=== PATIENT | female | born 1945 | race Caucasian/White ===

== ENCOUNTER → 2016-11-06 13:59 | Outpatient (CLI) | payer MEDICARE, OTHER | END | disposition home or self-care (01) | LOC: D.MRI 11-05 10:00 → D.RAD 11-05 13:00 → D.MRI 13:59 | DX: M25.519 Pain in unspecified shoulder (principal); R20.2 Paresthesia of skin ==

== ENCOUNTER → 2017-01-19 14:10 | Outpatient (CLI) | payer MEDICARE | END | disposition home or self-care (01) | LOC: D.LABREF 14:10 | DX: R59.0 Localized enlarged lymph nodes (principal) ==

== ENCOUNTER 2017-02-10 07:55 | Outpatient (CLI) | payer MEDICARE ==
[~2017-02-10] VITALS: Ht 165.1 cm; Wt 50.0 kg
[2017-02-10] MEDS ORDERED: ULTRAM50 MG PO (08:31)
[2017-02-10] MEDS ORDERED: PROCRIT/EP40000 UNIT SQ (08:31)
[2017-02-10] MEDS ORDERED: CYMBALTA30 MG PO (08:32)
[2017-02-10] MEDS ORDERED: LYRICA50 MG PO (08:32)
[2017-02-10 08:39] VITALS: Ht 165.1 cm; Wt 50.0 kg
--- NOTE | 2017-02-10 16:46 | NUR ---
1500 IV DC WITH CATHER TIP INTACT
== END 2017-02-10 16:00 | disposition home or self-care (01) ==
LOC: D.OPS 07:55
DX: D64.9 Anemia, unspecified (principal)

== ENCOUNTER 2017-02-24 09:25 | Outpatient (CLI) | payer MEDICARE ==
[~2017-02-24] VITALS: Ht 165.1 cm; Wt 48.2 kg
[~2017-02-24 09:25] MED LIST: CYMBALTA30 MG PO; LYRICA50 MG PO; PROCRIT/EP40000 UNIT SQ; ULTRAM50 MG PO
[2017-02-24 10:26] VITALS: BP 141/74; Ht 165.1 cm; Wt 48.2 kg
--- NOTE | 2017-02-24 12:02 | NUR ---
1150 HGB 9.5, HCT 28.2 1ST UNIT CHECKED AT BEDSIDE BY THIS NURSE AND LAWANDA HAYDEN RN. INITIATED BY ALARIS PUMP AT 50/CC/HR. PT WAS PREMEDICATED MAR INDICATED BY LAWANDA HAYDEN RN. 1200 REG DIET SERVED.
--- NOTE | 2017-02-24 12:05 | NUR ---
1205 DENIES PROBLEMS WITH BLOOD TRANSFUSION, RATE INCREASED TO 150/CC/HR.
--- NOTE | 2017-02-24 12:25 | NUR ---
1220 BLOOD CONTS. TO INFUSE WITHOUT PROBLEMS. PT. DOSING, AROUSES WITH CHECK. IV SITE PATENT.
--- NOTE | 2017-02-24 17:52 | NUR ---
1350 BLOOD COMPLETED LINE BEING FLUSHED WITH NS. DENIES PROBLEMS WITH TRANSFUSION. UP TO BR VOIDS LG AMT. 1450 NO PROBLEMS WITH TRANSFUSION. IV DC'D WITH CATH INTACT. RELEASED IN , [facility].
== END 2017-02-24 15:00 | disposition home or self-care (01) ==
LOC: D.OPS 09:25
DX: D64.9 Anemia, unspecified (principal)

== ENCOUNTER 2017-03-05 08:05 | Outpatient (CLI) | payer MEDICARE ==
[~2017-03-05] VITALS: Ht 165.1 cm; Wt 50.0 kg
[2017-03-05 08:38] VITALS: BP 123/51; Ht 165.1 cm; Wt 50.0 kg
--- NOTE | 2017-03-05 16:45 | NUR ---
1600--IV DC'D. QI CERON 1633--PT'S RIDE HERE. DISCHARGE INSTRUCTIONS GIVEN, PT VERBALIZES UNDERSTANDING. PT OFF UNIT VIA WC. QI CERON
== END 2017-03-05 16:45 | disposition home or self-care (01) ==
LOC: D.OPS 08:05
DX: D64.9 Anemia, unspecified (principal)

== ENCOUNTER → 2017-03-06 13:54 | Outpatient (CLI) | payer MEDICARE ==
[2017-03-05 08:38] VITALS: BMI 18.3
[2017-03-10 03:09] LABS: RAPID PLASMA REAGIN Non Reactive (Non Reactive)
[2017-03-10 15:24] LABS: EHRLICHIA CHAFF IGG Negative (Neg:<1:64); EHRLICHIA CHAFF IGM Negative (Neg:<1:20); HGE IGG TITER Negative (Neg:<1:64); HGE IGM TITER Negative (Neg:<1:20)
== END | disposition home or self-care (01) ==
LOC: D.LABREF 13:54
PROVIDERS: Student in an Organized Health Care Education/Training Program
DX: R63.4 Abnormal weight loss (principal); R59.1 Generalized enlarged lymph nodes; R61 Generalized hyperhidrosis

== ENCOUNTER 2017-04-01 09:53 | Inpatient (IN) | payer MEDICARE ==
[2017-04-01] VITALS (15 sets, daily range): BP systolic 127–196; BP diastolic 63–95; BMI 19.1
[~2017-04-01] VITALS: Ht 165.1 cm; Wt 64.1 kg
[~2017-04-01 09:53] MED LIST changes: +PROTONIX40 MG PO
--- NOTE | 2017-04-01 12:30 | NUR ---
NO PREP NO COUNT R/T PROCEDURE
--- NOTE | 2017-04-01 13:08 | NUR ---
BRITTNEYIE PAD TO RIGHT THIGH. LOT #[id number] [id number].
--- NOTE | 2017-04-01 13:16 | NUR ---
PATIENT REMAINED ON STRETCHER FOR PROCEDURE.
--- NOTE | 2017-04-01 15:00 | NUR ---
RECEIVED FROM RECOVERY ROOM VIA BED. CARE PLAN REVIEWED. SISTER IN ROOM. WILL CONTINUE WITH PLAN OF CARE.
[2017-04-01 15:43] LABS: BASOPHILS 0.5 % (0-2); EOSINOPHILS 0.7 % (0-7); HEMATOCRIT 22.1 % (36.0-48.0); IMMATURE GRANULOCYTES 0.8 % (0-5); LYMPHOCYTES 15.9 % (15-50); MCH 28.8 pg (26.0-34.0); MCHC 30.3 g/dL (31.0-37.0); MCV 94.8 fL (80.0-100.0); MEAN PLATELET VOLUME 11.4 fL (7.4-10.4); MONOCYTES 9.3 % (2-11); NEUTROPHILS 72.8 % (40-80); PLATELET COUNT 74 10x3/uL (130-400); RBC 2.33 10x6/uL (4.00-5.40); RDW 21.1 % (11.5-14.5); WBC 5.9 10x3/uL (4.8-10.8)
[2017-04-01 15:47] LABS: HEMOGLOBIN 6.7 g/dL (12-16)
[2017-04-01 16:04] LABS: ALBUMIN 2.1 g/dL (3.4-5.0); ANION GAP 13.6 mmol/L (8-16); BILIRUBIN - TOTAL 0.7 mg/dL (0.2-1.3); CALCIUM 7.8 mg/dL (8.5-10.1); CARBON DIOXIDE 25.2 mmol/L (21.0-32.0); CREATININE - SERUM 2.3 mg/dL (0.6-1.3); POTASSIUM - SERUM 3.8 mmol/L (3.5-5.1); PROTEIN - SERUM 4.8 g/dL (6.4-8.2)
--- NOTE | 2017-04-01 16:08 | NUR ---
ADRIAN CHRISTIANSEN. REFUSED CYMBALTA AT THIS TIME. CALL LIGHT IN REACH.
[2017-04-01 17:05] LABS: PLATELET ESTIMATE DECREASED
[2017-04-01 17:38] LABS: ALBUMIN 1.9 g/dL (3.4-5.0); ANION GAP 10.8 mmol/L (8-16); CARBON DIOXIDE 25.1 mmol/L (21.0-32.0); CREATININE - SERUM 2.1 mg/dL (0.6-1.3); MAGNESIUM - SERUM 2.1 mg/dL (1.8-2.4); PHOSPHOROUS 5.5 mg/dL (2.5-4.9); POTASSIUM - SERUM 3.9 mmol/L (3.5-5.1); PRE-ALBUMIN 10.3 mg/dL (18.0-35.7)
--- NOTE | 2017-04-01 18:30 | NUR ---
CONSENT FORMS SIGNED AND WITNESSED. NO CHANGES IN INITIAL ASSESSMENT. CALL LIGHT IN REACH. WILL CONTINUE WITH PLAN OF CARE.
--- NOTE | 2017-04-01 19:00 | NUR ---
PRBC INITIATED @ 100 CC/HR. VSS. CALL LIGHT IN REACH.
--- NOTE | 2017-04-01 20:00 | NUR ---
ASSESSMENT PER FLOWSHEET. IV PATENT LEFT WRIST WITH FIRST UNIT PRBC'S INFUSIG AT 100CC'S/HR. MONITORING VS DURING TRANSFUSION. SR YP X2 CALL LIGHT WITHIN REACH. PT VERY AK[place]K IN RT EAR.
--- NOTE | 2017-04-01 21:45 | NUR ---
FIRST UNIT BLOOD COMPLETED WITHOUT ANY REACTION. NS RUNNING AT KVO TO FLUSH TUBING.
--- NOTE | 2017-04-01 22:45 | NUR ---
SECOND UNIT OF PRBC'S HUNG PER HOSPITAL PROTOCAL. CONTINUE TO MONITOR VS DURING PROCEDURE.
--- NOTE | 2017-04-01 23:30 | NUR ---
NO REACTION SEEN TRANSFUSION RUNNING FINE.
[2017-04-02] VITALS (15 sets, daily range): BP systolic 164–197; BP diastolic 67–96; Ht 165.1 cm; Wt 64.1 kg
--- NOTE | 2017-04-02 01:30 | NUR ---
BLOOD TRANSFUSION COMPLETED NOT REACTION NOTED. NS RUNNING KVO TO FLUSHED TUBING.
--- NOTE | 2017-04-02 02:00 | NUR ---
VOIDED ON BEDPAN.
--- NOTE | 2017-04-02 04:15 | NUR ---
EYES CLOSED RESPIRATIONS WITH EASE AND UNLABORED IV SALINE LOCKED. NO ORDERS FOUND FOR IV FLUIDS.
--- NOTE | 2017-04-02 07:46 | NUR ---
AWAKE AND ALERT. ORIENTED X3. C/O SOME NAUSEA THIS AM. REQUESTED AND GIVNE 4MG ZOFRAN SLOW IVP FOR SAME. WILL MONITOR. ASSISTED WITH BED WAGONER PER STAFF. VOIDED 200CC CLEAR YELLOW URINE. SKIN CARE PER STAFF. LUNGS ARE CLEAR BILATERALLY, NO COUGH NOTED. SKIN IS INTACT WITHOUT REDNESS. IV TO LFET WRIST IS PATENT WTIHOUT REDNESS AT INSERTION SITE. SCD'S OFF AT THIS TIME. DENIES NEEDS. LAB HERE TO ATTEMPT BLOOD DRAW.
--- NOTE | 2017-04-02 08:30 | NUR ---
OFF UNIT VIA BED FOR PROCEDURE. LAB AND NURSING UNABLE TO DRAW BLOOD THIS AM.
--- NOTE | 2017-04-02 10:00 | NUR ---
RETURNED FROM PROCEDURE. SISTER AT [facility]. S. BP UP. WILL MONITOR.
[2017-04-02 13:05] LABS: BASOPHILS 0.1 % (0-2); EOSINOPHILS 0.7 % (0-7); IMMATURE GRANULOCYTES 0.8 % (0-5); LYMPHOCYTES 9.8 % (15-50); MCH 29.9 pg (26.0-34.0); MCHC 33.8 g/dL (31.0-37.0); NEUTROPHILS 81.6 % (40-80); PLATELET COUNT 61 10x3/uL (130-400); RDW 19.4 % (11.5-14.5)
[2017-04-02 13:12] LABS: HEMATOCRIT 26.9 % (36.0-48.0); HEMOGLOBIN 9.1 g/dL (12-16); MCV 88.5 fL (80.0-100.0); RBC 3.04 10x6/uL (4.00-5.40); WBC 9.1 10x3/uL (4.8-10.8)
[2017-04-02 19:16] LABS: ANION GAP 15.4 mmol/L (8-16); BILIRUBIN - TOTAL 0.96 mg/dL (0.2-1.3); CALCIUM 8.2 mg/dL (8.5-10.1); CARBON DIOXIDE 23.4 mmol/L (21.0-32.0); CREATININE - SERUM 2.6 mg/dL (0.6-1.3); POTASSIUM - SERUM 3.8 mmol/L (3.5-5.1); PROTEIN - SERUM 4.9 g/dL (6.4-8.2)
--- NOTE | 2017-04-02 19:35 | NUR ---
CLEAR LIQUID SUPPER TRAY SERVED IN ROOM. ATE ONLY A FEW SIPS OF ENSURE. CALLED RADIOLOGY RE PICC PLACEMENT. GIVEN VERBAL OK FOR USE OF SAME.
[2017-04-03] VITALS: BP 167/94
[2017-04-03 04:00] VITALS: BP 177/91
[2017-04-03 05:17] LABS: BASOPHILS 0.2 % (0-2); EOSINOPHILS 0.6 % (0-7); HEMATOCRIT 25.9 % (36.0-48.0); HEMOGLOBIN 8.7 g/dL (12-16); IMMATURE GRANULOCYTES 0.5 % (0-5); LYMPHOCYTES 9.4 % (15-50); MCHC 33.6 g/dL (31.0-37.0); MCV 89.3 fL (80.0-100.0); MONOCYTES 9.1 % (2-11); NEUTROPHILS 80.2 % (40-80); PLATELET COUNT 57 10x3/uL (130-400); RDW 20.1 % (11.5-14.5); WBC 11.1 10x3/uL (4.8-10.8)
[2017-04-03 05:39] LABS: ANION GAP 16.6 mmol/L (8-16); BILIRUBIN - TOTAL 0.95 mg/dL (0.2-1.3); CALCIUM 8.1 mg/dL (8.5-10.1); CARBON DIOXIDE 22.1 mmol/L (21.0-32.0); MAGNESIUM - SERUM 1.9 mg/dL (1.8-2.4); PHOSPHOROUS 6.1 mg/dL (2.5-4.9); POTASSIUM - SERUM 3.7 mmol/L (3.5-5.1)
--- NOTE | 2017-04-03 07:30 | NUR ---
AWAKE AND ALERT. ORIENTED X3. NO C/O AT THIS TIME. DENIES NEEDS. LUNGS ARE CLEAR BILATERALLY, NO COUGH NOTED. SKIN IS INTACT WITHOUT REDNESS. PICC TO LEFT UPPER ARM IS PATENT WITHOUT REDNESS AT ISNERTION SITE. SL TO LEFT WRIST PATENT WITHOUT REDNESS AT INSERTION SITE. PEG TUBE PATENT. ABDOMINAL BINDER IN PLACE WELL.
[2017-04-03 08:09] VITALS: BP 171/99
--- NOTE | 2017-04-03 08:58 | NUR ---
C/O PAIN TO RIGHT UPPER CHEST. REQUESTED AND GIVEN 50MG ULTRAM PO FOR PAIN LEVEL 6. WILL MONITOR.
--- NOTE | 2017-04-03 09:02 | NUR ---
Nutrition Consult: TF consult received. PEG placed 04/02/17. Pt is on a clear liquid diet. Will put order in to start TF when ok with MD. Start TF of Vital 1.0 @ 15 ml/hr. Increase TF 10 ml every 8 hours as tolerated to goal rate of 65 ml/hr. Water flushes 50 ml every 4 hours. Thank you for the consult. RD following.
--- NOTE | 2017-04-03 11:23 | NUR ---
REPORTED GOOD RELIEF WITH USE OF ULTRAM. SISTER AT BEDSIDE.
[2017-04-03 12:36] VITALS: BP 158/90
--- NOTE | 2017-04-03 12:55 | NUR ---
STARTED TUBE FEEDING PER ORDER.
--- NOTE | 2017-04-03 14:00 | NUR ---
REPOSITIONED IN BED FOR COMFORT. DENIES NEEDS. FAMILY AT BEDSIDE.
[2017-04-03 15:50] VITALS: BP 163/94
[2017-04-03 19:13] LABS: CREATININE - URINE 43.3 mg/dL (30-125); PRO/CRE RATIO URINE 3.9 mg/g; PROTEIN - URINE 166.9 mg/dL (0.0-11.9)
[2017-04-03 19:16] LABS: APPEARANCE HAZY (CLEAR); BACTERIA MODERATE /hpf (NONE SEEN); BILIRUBIN NEGATIVE (NEGATIVE); COLOR YELLOW (YELLOW); GLUCOSE NEGATIVE (NEGATIVE); KETONE NEGATIVE (NEGATIVE); MUCUS <1+ /lpf (NONE SEEN); NITRITE NEGATIVE (NEGATIVE); PROTEIN 2+ mg/dL (NEGATIVE); SPECIFIC GRAVITY 1.015 (1.005-1.020); UROBILINOGEN NORMAL (NORMAL)
[2017-04-03 19:17] LABS: LEUKOCYTE ESTERASE TRACE (NEGATIVE)
[2017-04-03 20:00] VITALS: BP 168/96
--- NOTE | 2017-04-03 20:00 | NUR ---
ASSESSMENT PER FLOW SHEET.PT WITHOUT DISTRESS.DENIES NEEDS.CALL LIGHT IN REACH
--- NOTE | 2017-04-03 23:54 | NUR ---
RESTING WITHOUT DISTRESS.DOOR OPEN TO MONITOR
[2017-04-04] VITALS (19 sets, daily range): BP systolic 123–155; BP diastolic 62–96
--- NOTE | 2017-04-04 02:53 | NUR ---
RESTING QUIETLY WITHOUT DISTRESS.DOOR OPEN TO MONITOR
[2017-04-04 04:55] LABS: BASOPHILS 0.2 % (0-2); EOSINOPHILS 1.4 % (0-7); HEMATOCRIT 24.5 % (36.0-48.0); HEMOGLOBIN 8.2 g/dL (12-16); LYMPHOCYTES 10.3 % (15-50); MCH 30.7 pg (26.0-34.0); MCHC 33.5 g/dL (31.0-37.0); MONOCYTES 11.4 % (2-11); NEUTROPHILS 75.7 % (40-80); PLATELET COUNT 57 10x3/uL (130-400); RBC 2.67 10x6/uL (4.00-5.40); RDW 21.5 % (11.5-14.5); WBC 9.9 10x3/uL (4.8-10.8)
[2017-04-04 05:01] LABS: MCV 91.8 fL (80.0-100.0)
--- NOTE | 2017-04-04 05:09 | NUR ---
REMAINS WITHOUT CHANGE FROM INITIAL SHIFT ASSESSMENT.CONT PLAN OF CARE
[2017-04-04 05:13] LABS: ALBUMIN 1.9 g/dL (3.4-5.0); ANION GAP 13.3 mmol/L (8-16); BILIRUBIN - TOTAL 0.65 mg/dL (0.2-1.3); CALCIUM 7.7 mg/dL (8.5-10.1); CARBON DIOXIDE 23.5 mmol/L (21.0-32.0); CREATININE - SERUM 3.5 mg/dL (0.6-1.3); MAGNESIUM - SERUM 1.9 mg/dL (1.8-2.4); PHOSPHOROUS 6.3 mg/dL (2.5-4.9); POTASSIUM - SERUM 3.8 mmol/L (3.5-5.1); PROTEIN - SERUM 4.8 g/dL (6.4-8.2)
--- NOTE | 2017-04-04 12:50 | NUR ---
WILMER, KETTLE COOK CALLED AND SAID THE PATIENT IS 89 S[address] TACH. CHECKED PATIENT, SHE IS LAYING IN BED, CALM AND STILL, NOT MOVING AROUND. PATIENT DOES NOT APPEAR TO BE IN DISTRESS. RESPIRATIONS ARE EVEN AND UNLABORED. PAGED . CAME IN TO SEE PATIENT. TOLD ABOUT PATIENT'S HEART RATE GOING UP AND DOWN. HE IS ASSESSING PATIENT. CALLED, NOTIFIED ALSO.
--- NOTE | 2017-04-04 13:45 | NUR ---
CHECKED PATIENT'S RESIDUAL, 150ML OF BROWN FLUID WITH BRIGHT RED BLOOD, BLOOD CLOTS AND DARK BLOOD. CLAMPLED NGT. PAGED .
--- NOTE | 2017-04-04 13:51 | NUR ---
PEG TUBE TO GRAVITY.
--- NOTE | 2017-04-04 14:16 | NUR ---
NO ACTIVE ORDER FOR . PAGED .
[2017-04-04 14:43] LABS: HEMATOCRIT 23.5 % (36.0-48.0); HEMOGLOBIN 7.7 g/dL (12-16)
[2017-04-04 15:01] LABS: COMPLEMENT C4 15.8 mg/dL (17.4-52.2)
[2017-04-04 15:59] LABS: ERYTHROCYTE SEDIMENTATION RATE 14 mm/hr (0-30)
--- NOTE | 2017-04-04 18:08 | NUR ---
STARTED FIRST UNIT OF PRBC. WILL REMAIN WITH PATIENT FOR THE FIRST 15 MINUTES OF THE TRANSFUSION. SISTER AT THE BEDSIDE.
--- NOTE | 2017-04-04 20:00 | NUR ---
ASSESSMENT PER FLOW SHEET. PT WITHOUT DISTRESS.DENIES NEEDS.CALL LIGHT IN REACH
--- NOTE | 2017-04-04 21:15 | NUR ---
UNIT 1 OF 2 PRBC'S COMPLETE.PT WITHOUT REACTIONS.
--- NOTE | 2017-04-04 22:30 | NUR ---
UNIT 2 OF 2 PRBC'S INITIATED.PT WITHOUT REACTIONS
[2017-04-05] VITALS (24 sets, daily range): BP systolic 102–161; BP diastolic 58–98
--- NOTE | 2017-04-05 00:30 | NUR ---
UNIT 2 OF 2 PRBC'S COMPLETE.PT REMAINS WITHOUT REACTIONS.
[2017-04-05 02:39] LABS: HEMATOCRIT 31.3 % (36.0-48.0); HEMOGLOBIN 10.6 g/dL (12-16)
--- NOTE | 2017-04-05 02:55 | NUR ---
PT HAS DECREASED LOC AND LARGE AMOUNTS OF TARRY BLACK STOOL. RAPID RESPONCE CALLED ,SEE RAPID SHEET.
[2017-04-05 03:13] LABS: BASOPHILS 0.2 % (0-2); EOSINOPHILS 0.7 % (0-7); HEMATOCRIT 34.9 % (36.0-48.0); HEMOGLOBIN 11.4 g/dL (12-16); LYMPHOCYTES 26.9 % (15-50); MCH 30.6 pg (26.0-34.0); MCHC 32.7 g/dL (31.0-37.0); MCV 93.6 fL (80.0-100.0); MONOCYTES 8.5 % (2-11); NEUTROPHILS 62.7 % (40-80); PLATELET COUNT 75 10x3/uL (130-400); RBC 3.73 10x6/uL (4.00-5.40); RDW 18.9 % (11.5-14.5); WBC 16.3 10x3/uL (4.8-10.8)
[2017-04-05 03:32] LABS: ALBUMIN 1.9 g/dL (3.4-5.0); ANION GAP 16.9 mmol/L (8-16); BILIRUBIN - TOTAL 0.96 mg/dL (0.2-1.3); CARBON DIOXIDE 21.2 mmol/L (21.0-32.0); CREATININE - SERUM 3.8 mg/dL (0.6-1.3); MAGNESIUM - SERUM 2.2 mg/dL (1.8-2.4); PHOSPHOROUS 7.6 mg/dL (2.5-4.9); POTASSIUM - SERUM 5.1 mmol/L (3.5-5.1); PROTEIN - SERUM 5.2 g/dL (6.4-8.2)
[2017-04-05 03:35] LABS: APTT 38.1 SECONDS (22.8-39.4); INR 1.38 (0.85-1.17); PROTIME 16.9 SECONDS (11.6-15.0)
--- NOTE | 2017-04-05 03:40 | NUR ---
CALLED DR. MORSE AND MADE AWARE OF CONSULT AND SITUATION. ORDERS TO INTUBATE AND VENT SETTINGS GIVEN. DIPRIVAN ORDERS FOR TITRATION FOR SEDATION PURPOSES. DR. COX ER DOC AT BEDSIDE APPROX. 0345 AND SINCE PATIENT IS TALKING AND ORIENTED AT THIS TIME AND OXYGENATING W/ O2 SAT OF 96%, WANTS TO DO BIPAP AT THIS TIME. PLACED ON 15/02; FI02 @ 100% RATE OF 12. IV SODIUM BICARB X2 ORDERED.
--- NOTE | 2017-04-05 03:52 | NUR ---
PT TO ICU VIA BED.
--- NOTE | 2017-04-05 03:52 | NUR ---
CALL TO FAMILY,[facility] CONTACT LISTED [phone].MESSAGE LEFT FOR THEM TO CALL MED SURG UNIT
--- NOTE | 2017-04-05 07:30 | NUR ---
REPORT RECEIVED. ASSESSMENT COMPLETE. SEE FLOW SHEET FOR FINDINGS. PT ON BIPAP AT 50% AT THIS TIME. HAS PEG TO AT LEFT ABDOMEN TO GRAVITY. HAS SHARPE CATHETER. PICC LINE IN RIGHT ARM. NS AND PROTONIX RUNNING. SCD'S.
--- NOTE | 2017-04-05 08:23 | NUR ---
PT PLACED ON 4L NC TO GO TO CT. SATS 98%. NO DISTRESS.
--- NOTE | 2017-04-05 10:26 | NUR ---
DR HOLLOWAY CALLED TO CHECK ON PATIENT. WANTS ORDER FOR FLAGYL AND LEVAQUIN. SPOKE TO HER ABOUT H&H LEVELS. ASKED IF SHE WANTED A UNIT OF BLOOD ADMINISTERED. SHE ASKED TO HOLD OFF FOR RIGHT NOW, BUT CONTINUE TO MONITOR FOR BLEEDING.
--- NOTE | 2017-04-05 10:50 | NUR ---
URINE COLLECTED FOR SAMPLE. VERY LITTLE URINE OUTPUT EVEN AFTER 80MG LASIX GIVEN. PT STILL ON BIPAP AT THIS TIME. DESATS VERY QUICKLY WHEN MASK TAKEN OFF.
[2017-04-05 11:03] LABS: APPEARANCE CLOUDY (CLEAR); BILIRUBIN NEGATIVE (NEGATIVE); COLOR YELLOW (YELLOW); GLUCOSE NEGATIVE (NEGATIVE); KETONE NEGATIVE (NEGATIVE); LEUKOCYTE ESTERASE 1+ (NEGATIVE); NITRITE NEGATIVE (NEGATIVE); PROTEIN 2+ mg/dL (NEGATIVE); UROBILINOGEN NORMAL (NORMAL)
[2017-04-05 11:05] LABS: EPITHELIAL CELLS 0-5 /hpf (0-5); RED CELLS - URINE 0-5 /hpf (0-5); WHITE CELLS - URINE 0-5 /hpf (0-5)
[2017-04-05 11:06] LABS: AMORPHOUS SEDIMENT <1+ /lpf (NONE SEEN); BACTERIA FEW /hpf (NONE SEEN)
--- NOTE | 2017-04-05 12:15 | NUR ---
SISTER AT BEDSIDE FOR VISITATION. PT KEEPS PULLING AT MASK. O2 SATS 95% AT THIS TIME.
--- NOTE | 2017-04-05 13:30 | NUR ---
PT BECOMING MORE ANXIOUS. HR ELEVATED INTO 130'S. SPOKE TO DR LIMA ABOUT ELEVATED HR. SHE CALLED [facility]AL[facility] IN PHARMACY TO DISCUSS SULPHA ALLERGY AND MORPHINE. NO CONNECTION. IT HAD BEEN DISCUSSED PREVIOUSLY WITH DR BROOKS, AND HE INITIALLY WANTED MORPHINE GIVEN, BUT THOUGHT WAS INCOMPATIBLE. SINCE IS OK, DR LIMA ORDERING A LOW DOSE FOR ADMINISTRATION.
[2017-04-05 13:56] LABS: HEMATOCRIT 30.9 % (36.0-48.0); HEMOGLOBIN 10.3 g/dL (12-16)
--- NOTE | 2017-04-05 14:06 | NUR ---
PT GIVEN PRN MORPHINE. IS CURRENTLY RESTING. HR STILL LOW 130'S. CURRENTLY ON DOBUTREX DRIP AT 5 MCG. STILL HAS HAD VERY LITTLE URINE OUTPUT.
--- NOTE | 2017-04-05 15:20 | NUR ---
SISTER AT BEDSIDE FOR 3PM VISITATION. HR STILL ELEVATED. SISTER BROUGHT SOFT SOCKS FOR HANDS. DOES NOT HAVE ANY GLOVES.
--- NOTE | 2017-04-05 15:29 | NUR ---
OBTAINTED CONSENT FROM SISTER, [facility], FOR COMPUTED TOMOGRAPHY GUIDED RENAL BIOPSY ON 04/06/17.
--- NOTE | 2017-04-05 16:04 | NUR ---
PT HR HAS STAYED ABOVE 135. DR BROOKS NOTIFIED. ASKED FOR DOBUTREX DRIP TO BE STOPPED. ASKED FOR AN ECHO TO BE ORDERED WELL.
--- NOTE | 2017-04-05 17:53 | NUR ---
PT RESTING QUIETLY AT THIS TIME. NO DISTRESS NOTED. BIPAP IN USE AT 50%.
[2017-04-05 19:11] LABS: HEMATOCRIT 29.3 % (36.0-48.0); HEMOGLOBIN 9.9 g/dL (12-16)
--- NOTE | 2017-04-05 21:00 | NUR ---
SISTER AT BS, UPDATE GIVEN AND QUESTIONS ANSWERED. PT RESTING QUIETLY, NO SIGN OF DISTRESS.
--- NOTE | 2017-04-05 23:13 | NUR ---
REASSESSMENT PER FLOWSHEET. TOLERATED 30MIN BREAK FROM BIPAP TO 4L NC. ASKING AND ANSWERING QUESTIONS APPROP. REORIENTED BY NURSE.
[2017-04-06] VITALS (30 sets, daily range): BP systolic 104–160; BP diastolic 52–98
--- NOTE | 2017-04-06 01:00 | NUR ---
RESTING WITH EYES CLOSED, VSS.
--- NOTE | 2017-04-06 03:29 | NUR ---
REASSESSMENT PER FLOWSHEET. ON 4L NC FOR BREAK AND ORAL CARE. NO ACUTE CHANGES. PT REMAINS ORIENTED AT THIS TIME. VSS.
[2017-04-06 05:01] LABS: BASOPHILS 0 % (0-2); EOSINOPHILS 0.4 % (0-7); HEMATOCRIT 27.9 % (36.0-48.0); HEMOGLOBIN 9.4 g/dL (12-16); IMMATURE GRANULOCYTES 0.8 % (0-5); LYMPHOCYTES 6.9 % (15-50); MCH 31.3 pg (26.0-34.0); MCHC 33.7 g/dL (31.0-37.0); MONOCYTES 9.1 % (2-11); NEUTROPHILS 82.8 % (40-80); PLATELET COUNT 60 10x3/uL (130-400); RDW 19.9 % (11.5-14.5)
[2017-04-06 05:04] LABS: WBC 10.1 10x3/uL (4.8-10.8)
[2017-04-06 05:10] LABS: APTT 38.5 SECONDS (22.8-39.4); INR 1.45 (0.85-1.17); PROTIME 17.5 SECONDS (11.6-15.0)
[2017-04-06 05:27] LABS: ALBUMIN 1.7 g/dL (3.4-5.0); ANION GAP 17.1 mmol/L (8-16); BILIRUBIN - TOTAL 0.81 mg/dL (0.2-1.3); CALCIUM 7.4 mg/dL (8.5-10.1); CARBON DIOXIDE 22.1 mmol/L (21.0-32.0); CREATININE - SERUM 4.3 mg/dL (0.6-1.3); POTASSIUM - SERUM 4.2 mmol/L (3.5-5.1); PRE-ALBUMIN 9.5 mg/dL (18.0-35.7); PROTEIN - SERUM 4.8 g/dL (6.4-8.2)
--- NOTE | 2017-04-06 06:09 | NUR ---
DR. CUNHA NOTIFIED OF UOP AND AM LABS. NO NEW ORDERS.
--- NOTE | 2017-04-06 06:20 | NUR ---
SMALL SMEAR OF BROWN STOOL, NOT ENOUGH FOR LAB SAMPLE, MARK-CARE DONE AND PAD CHANGED.
--- NOTE | 2017-04-06 06:40 | NUR ---
UNIT #1 PRBCS INITIATED PER MD ORDER, PER HOSPITAL POLICY.
--- NOTE | 2017-04-06 07:30 | NUR ---
SHIFT ASSESSMENT COMPLETE. SEE FLOWSHEET FOR FINDINGS. PT ON BIPAP AT THIS TIME, BUT IS ALERT AND ORIENTED. ANSWERS APROPRIATELY.
--- NOTE | 2017-04-06 09:12 | NUR ---
PRBC COMPLETE. VSS. PT SISTER AT BEDSIDE. PT AWAKE AND ASKS TO HAVE A BREAK FROM BIPAP. PLACED ON 4L NC. TOLERATING WELL. SATS ABOVE 97%. WILL CONTINUE TO MONITOR SATS FOR DESATURATION AND NEED FOR BIPAP
--- NOTE | 2017-04-06 09:30 | NUR ---
PLATELETS STARTED. DESMOPRESSIN STARTED IN PREPARATION FOR RENAL BIOPSY.
--- NOTE | 2017-04-06 10:08 | NUR ---
Nutrition follow-up: Pt is now NPO due to GI bleeding PEG to gravity Labs reviewed Pt now assessed with severe malnutrition of acute illness R/T watermelon stomach AEB < 50% intake of estimated energy needs for > 5 days; noted subcutaneous fat, muscle loss to extremities; noted moderate temporal wasting; noted reduced surveillance sensor officer strength. Pt will need nutrition support started within [address]N following.
--- NOTE | 2017-04-06 10:17 | NUR ---
PT ASKED TO BE PLACED BACK ON BIPAP. O2 SATS 96%, BUT SHE FELT LIKE SHE WASN'T GETTING "ENOUGH AIR" ON NC 4L.
--- NOTE | 2017-04-06 11:24 | NUR ---
PT OFF UNIT FOR RENAL BIOPSY
--- NOTE | 2017-04-06 11:56 | NUR ---
PT RETURNED TO ROOM FROM CT. WAS UNABLE TO DO BIOPSY. PT STARTED HAVING DIFFICULTY BREATHING UPON TRANSFER TO TABLE. WAS RETURNED TO ICU AND PLACED BACK ON BIPAP. DR DIAMOND NOTIFIED. HE ASKED TO HOLD OFF ON BIOPSY AND TRY AGAIN LATER THIS AFTERNOON. WANTS HER TO BE ON OXYMIZER AND SEE HOW SHE TOLERATES THAT, IF UNABLE, BIOPSY WILL HAVE TO WAIT.
--- NOTE | 2017-04-06 13:37 | NUR ---
* Is the patient Alert and Oriented? Yes 0 * How many steps to enter\exit or inside your home? 0 0 * PCP Dr. Campbell 0 * Pharmacy [facility] #2 0 * Preadmission Environment Home with Family 0 * ADLs Partial Dependent 0 * Partial ADLs (Assistance needed) Ambulation Bathing Dressing Medication Management Toileting Transfers 0 * Equipment Cane Rolling Walker Shower Chair Wheelchair 0 * List name and contact numbers for known caregivers / representatives who currently or will assist patient after discharge: Sister - Sherice Sullivan [phone] 0 * Additional services required to return to the preadmission environment? Yes 0 * Can the patient safely return to the preadmission environment? Yes 0 * Has this patient been hospitalized within the prior 30 days at any hospital? No 04/06/2017 13:40 DCP: Discharge Planning Patient Name: YONIS ESCOBAR Admission Status: Elective Accout number: [id number] Admission Date: 04-02-2017 : 1945 Admission Diagnosis:ACUTE POSTHEMORRHAGIC ANEMIA Attending: BRICE Current LOS: 4 Planned Disposition: Home with Home Health Primary Insurance: [facility] Discharge Planning Comments: CM met with patient to assess dc plans/needs. Also spoke with sister, Sherice, via telephone. Patient states she was living at home with her , but he about 2 weeks ago after a major CVA. She states her health has rapidly declined over the last couple of months, unable to care for herself. She states her sister has been staying with her & providing care & transportation. She reports she was using a walker when she would go to the bathroom, but was otherwise pretty much bed confined. Above confirmed with sister, Sherice Sullivan. Sherice reports she is POA. Discussed rehab options with both patient & sister. They are agreeable. Their first choice is [facility]. Answered all questions. CM will follow. Sap Payroll Consultant: Nicolasa Leahy
[2017-04-06 13:56] LABS: HEMATOCRIT 32.2 % (36.0-48.0); HEMOGLOBIN 10.8 g/dL (12-16)
--- NOTE | 2017-04-06 14:08 | NUR ---
CALLED RENAL OFFICE. DR WIGGINS CREDIT OPERATIONS PROCESSOR. RICHY FROM [facility] WANTING TO SPEAK WITH DR WIGGINS ABOUT BIOPSY. PT HAS BEEN PLACED BACK ON BIPAP AFTER TRIALING OXYMIZER. PT DID NOT TOLERATE AND DESAT DOWN TO 92. TOOK 45 MINUTES AFTER BEING PLACED BACK ON BIPAP TO GETS SATS ABOVE 95% SHE IS RESTING AT THIS TIME. STILL AWAITING RETURN CALL FROM [facility] TO NOTIFY HIM OF BIOPSY STATUS.
--- NOTE | 2017-04-06 14:20 | NUR ---
RICHY FROM IR CALLED AND SPOKE WITH DR DIAMOND. DOES NOT ADVISE TO PERFORM BIOPSY TODAY. ASKS TO HOLD OFF UNTIL THURSDAY AND GIVE PT TIME TO IMPROVE.
--- NOTE | 2017-04-06 15:45 | NUR ---
MAINTENANCE FLUID DROPPED TO KVO REQUESTED BY DR WIGGINS. PT REMIANS ON BIPAP AT 50%. SATS NOW AT 96%.
--- NOTE | 2017-04-06 18:28 | NUR ---
CONTACTED DR. GARRETT, TO INFORM OF CONSULT RELATED TO PTS UNCONTROLLED A-FIB, ASKED TO BE STARTED ON CARDIZEM.
--- NOTE | 2017-04-06 18:32 | NUR ---
DR SEGOVIA BY TO SEE PATIENT.
--- NOTE | 2017-04-06 18:52 | NUR ---
CARDIZEM DRIP STARTED. PT HR UNDER 100 AT THIS TIME. RESTING QUIETLY. BP HAS COME DOWN SOME WELL. PT STATES SHE FEELS LESS ANXIOUS ALSO
--- NOTE | 2017-04-06 19:25 | NUR ---
REC'D TO CARE, LINEN ROOM SUPERVISOR PER FLOWSHEET. PT ON BIPAP, AWAKE, DENIES PAIN OR SOB. VSS. CM - NSR. IVF INFUSING TO L PICC - SEE FLOWSHEET. ALARMS ON AND C.L IN REACH.
[2017-04-06 20:21] LABS: HEMOGLOBIN 10.7 g/dL (12-16)
--- NOTE | 2017-04-06 20:26 | NUR ---
DR. GARRETT IN TO SEE PT, NEW ORDER TO DECREASE RATE TO 5MG/HR FOR HR < 65, AND OFF IF REMAINS < 65.
--- NOTE | 2017-04-06 21:25 | NUR ---
SISTER AT BS. PT OFF BIPAP TO VISIT AND FOR ORAL CARE, UPDATE GIVEN AND QUESTIONS ANSWERED.
--- NOTE | 2017-04-06 23:34 | NUR ---
REASSESSMENT PER FLOWSHEET, NO ACUTE CHANGES. REPOSITIONED TO R SIDE WITH PILLOWS FOR COMFORT. PT COOPERATIVE, DENIES NEEDS. VSS.
[2017-04-07] VITALS (29 sets, daily range): BP systolic 113–154; BP diastolic 64–91
--- NOTE | 2017-04-07 01:17 | NUR ---
RESTING WITH EYES CLOSED, VSS. NO SIGN OF DISTRESS.
--- NOTE | 2017-04-07 03:35 | NUR ---
REASSESSMENT PER FLOWSHEET, NO ACUTE CHANGES.. ALL IV TUBINGS AND PRN ADAPTERS CHANGED.
[2017-04-07 04:58] LABS: BASOPHILS 0 % (0-2); EOSINOPHILS 0.1 % (0-7); HEMATOCRIT 32.1 % (36.0-48.0); HEMOGLOBIN 10.7 g/dL (12-16); IMMATURE GRANULOCYTES 1.1 % (0-5); LYMPHOCYTES 7.2 % (15-50); MCH 30.6 pg (26.0-34.0); MCHC 33.3 g/dL (31.0-37.0); MCV 91.7 fL (80.0-100.0); MONOCYTES 8.1 % (2-11); NEUTROPHILS 83.5 % (40-80); RDW 20.6 % (11.5-14.5); WBC 11.3 10x3/uL (4.8-10.8)
[2017-04-07 05:01] LABS: PLATELET COUNT 77 10x3/uL (130-400)
[2017-04-07 05:10] LABS: APTT 38.2 SECONDS (22.8-39.4); INR 1.55 (0.85-1.17); PROTIME 18.5 SECONDS (11.6-15.0)
--- NOTE | 2017-04-07 05:15 | NUR ---
COMPLETE BATH AND LINEN CHANGE DONE. LOTION TO DRY SKIN, ROM ENCOURAGED. PT WITH GOOD COUGH WHILE ON NC. BACK TO BIPAP MASK PER REQUEST. VSS. C/L IN REACH.
[2017-04-07 05:22] LABS: ALBUMIN 1.8 g/dL (3.4-5.0); BILIRUBIN - DIRECT 0.29 mg/dL (0.00-0.30); BILIRUBIN - INDIRECT 0.59 mg/dL (0.00-1.00); BILIRUBIN - TOTAL 0.88 mg/dL (0.2-1.3); CALCIUM 7.6 mg/dL (8.5-10.1); CARBON DIOXIDE 19.6 mmol/L (21.0-32.0); CREATININE - SERUM 4.8 mg/dL (0.6-1.3); PHOSPHOROUS 8.2 mg/dL (2.5-4.9); POTASSIUM - SERUM 4.6 mmol/L (3.5-5.1); PROTEIN - SERUM 4.9 g/dL (6.4-8.2)
--- NOTE | 2017-04-07 07:15 | NUR ---
REPORT RECIEVED FROM FLIGHT ENGINEER INSPECTOR NURSE. PT RESTING IN BED QUIETLY ON BIPAP AT 30%. NO SIGNS OF DISTRESS NOTED AT THIS TIME. FULL ASSESSMENT COMPLETE PER FLOWSHEET. DENIES PAIN AT THIS TIME. TURNED AND REPOSITIONED FOR COMFORT. CALL LIGHT IN REACH. BED IN LOW POSITION. WILL CONT TO ASSESS FOR CHANGES THROUGHOUT SHIFT.
--- NOTE | 2017-04-07 07:30 | NUR ---
TAKEN OFF BIPAP AND PLACED ON OXYMIZER AT 4L. TOLERATING WELL. WILL CONT TO ASSESS.
--- NOTE | 2017-04-07 09:00 | NUR ---
REMIANS ON HIGH FLOW NC. SISTER AT BEDSIDE. UPDATE PROVIDED.
--- NOTE | 2017-04-07 10:15 | NUR ---
PLACED BACK ON BIPAP AT 30%. STATED SHE WAS HAVING SOME SHORTNESS OF BREATH. WILL MONITOR.
--- NOTE | 2017-04-07 10:28 | NUR ---
Nutrition consult for TF: Chart reviewed. Pt with PEG tube. Pt is ARF at this time with no dialysis access. Per Dr. Tanner: Will start Suplena @ 20 ml/hr with increase to goal rate of 40 ml/hr This regimen will provide: 1728 kcal 43 gms protein ~672 ml free H2O When dialysis begins will need to change formula to Nepro. Thank you for the consult.
--- NOTE | 2017-04-07 11:00 | NUR ---
REASSESSMENT COMPLETE PER FLOWSHEET. NO CHANGES NOTED AT THIS TIME.
--- NOTE | 2017-04-07 13:00 | NUR ---
RESTING QUIETLY WITH EYES CLOSED. RESP EVEN AND UNLABORED. VSS. WILL CONT TO ASSESS.
--- NOTE | 2017-04-07 15:00 | NUR ---
G-TUBE DRAIN SPONGE DRESSING CHANGED, SEROUS FLUID NOTED TO OLD DRESSING. PARTIAL LINEN CHANGE PROVIDED. CALL LIGHT PLACED IN REACH. WILL CONT TO ASSESS. SISTER AT BEDSIDE. UPDATE PROVIDED.
--- NOTE | 2017-04-07 17:00 | NUR ---
DRAIN SPONGE TO G-TUBE CHANGED AGAIN. GOWN ALSO CHANGED. WILL CONT TO ASSESS DRAINAGE.
--- NOTE | 2017-04-07 19:10 | NUR ---
REPORT RECIEVED, SHIFT ASSESSMENT COMPLETE, PT IS ALERT AND ORIENTED, ON 40% BIPAP WITH 96% O2 SAT. CRACKLES HEARD IN B/L UPPER LOBES, DIMINISHED IN B/L LOWER LOBES, S1S2, CM-NSR, PATENT LEFT UPPER ARM PICC..SEE IV FLOW SHEET...ABODMEN IS SOFT AND FLAT WITH HYPO BS, PATENT F/C WITH C/YELLOW UOP, EDEMA NOTED IN ALL EXTREMETIES, ALL PPP, VSS, WILL CON'T TO MONITOR
--- NOTE | 2017-04-07 21:05 | NUR ---
FAMILY AT BEDSIDE, UPDATE GIVEN
--- NOTE | 2017-04-07 23:02 | NUR ---
REASSESSMENT COMPLETE, NO CHANGES NOTED, PT RESTING AT THIS TIME, VSS, CALL LIGHT IN REACH
[2017-04-08] VITALS (22 sets, daily range): BP systolic 85–152; BP diastolic 66–98
--- NOTE | 2017-04-08 01:00 | NUR ---
PT REPOSITIONED FOR COMFORT, WILL CON'T TO MONITOR
--- NOTE | 2017-04-08 03:04 | NUR ---
REASSESSMENT COMPLETE, NO CHANGES NOTED, PT RESTING COMFORTABLY AT THIS TIME, VSS, CALL LIGHT IN REACH
[2017-04-08 03:49] LABS: BASOPHILS 0.1 % (0-2); EOSINOPHILS 0.5 % (0-7); HEMATOCRIT 33.2 % (36.0-48.0); HEMOGLOBIN 11.2 g/dL (12-16); IMMATURE GRANULOCYTES 1.6 % (0-5); LYMPHOCYTES 6.1 % (15-50); MCH 31.1 pg (26.0-34.0); MCHC 33.7 g/dL (31.0-37.0); MCV 92.2 fL (80.0-100.0); NEUTROPHILS 84.7 % (40-80); PLATELET COUNT 68 10x3/uL (130-400); RDW 21.5 % (11.5-14.5); WBC 13.3 10x3/uL (4.8-10.8)
[2017-04-08 03:58] LABS: ANION GAP 17.6 mmol/L (8-16); CALCIUM 7.6 mg/dL (8.5-10.1); CARBON DIOXIDE 21.7 mmol/L (21.0-32.0); CREATININE - SERUM 5.2 mg/dL (0.6-1.3); POTASSIUM - SERUM 4.3 mmol/L (3.5-5.1)
--- NOTE | 2017-04-08 04:25 | NUR ---
HR IN THE 150'S, CARDIZIEM GTT INITIATED
--- NOTE | 2017-04-08 09:54 | NUR ---
NUTRITION MONITORING & EVAL CHART REVIEWED. PT RESTING. SUPLENA @ GOAL RATE 40 CC/HR PER PEG. WILL MONITOR TUBE FEED TOLERANCE, PT PROGRESS. RD FOLLOWING
--- NOTE | 2017-04-08 11:33 | NUR ---
PT ASKING TO HAVE HER OXYGEN LEVEL TURNED UP. LET HER KNOW I WOULD HAVE TO TALK TO [facility] LAB TECHNICIAN SINCE IT IS HER BIPAP SETTINGS AND SHE IS AT 98% SATURATION AT THIS TIME. TOOK THIS AN OPORTUNITY TO TALK ABOUT CODE STATUS. SHE DOES NOT WANT TO BE INTUBATED. ALSO ASKED HER ABOUT CHEST COMPRESSIONS SHOULD HER HEART STOP, SHE DOES NOT WANT CPR. DR DIAMOND HAS BEEN NOTIFIED OF PATIENT REQUEST.
--- NOTE | 2017-04-08 11:54 | NUR ---
WENT IN TO PATIENT ROOM WITH ANOTHER NURSE TO WITNESS FOR DNR PAPERWORK. PT HAS DECIDED SHE WOULD LIKE "TO TRY" BEING INTUBATED IF SHE BECOMES DISTRESSED. SHE IS VERY ANXIOUS AT THIS TIME. TOLD HER SHE WAS NOT IN IMMEDIATE NEED AT THIS MOMENT TO BE INTUBATED. WILL HOLD OFF DNR ORDER AT THIS TIME PER HER REQUEST.
[2017-04-08 12:11] LABS: ANA REFLEX - ANTICHROMATIN ABS <0.2 AI (0.0-0.9); ANA REFLEX - CENTROMERE B ABS <0.2 AI (0.0-0.9); ANA REFLEX - DBL STRANDED DNA <1 IU/mL (0-9); ANA REFLEX - DIRECT Positive (Negative); ANA REFLEX - JO-1 AB <0.2 AI (0.0-0.9); ANA REFLEX - RNP ANTIBODIES <0.2 AI (0.0-0.9); ANA REFLEX - SCL-70 <0.2 AI (0.0-0.9); ANA REFLEX - SJOGRENS AB SSA 2.9 AI (0.0-0.9); ANA REFLEX - SJOGRENS AB SSB <0.2 AI (0.0-0.9); ANA REFLEX - SMITH AB <0.2 AI (0.0-0.9)
--- NOTE | 2017-04-08 15:05 | NUR ---
SISTER AT BEDSIDE FOR 3PM VISITATION. UPDATE PROVIDED. PT HAVING ABDOMENAL PAIN. HAVE TRIED REPOSITIONING. WAS GIVEN MORPHINE EARLIER. SOME RELIEF PROVIDED SHORTLY AFTER ADMINISTRATION.
--- NOTE | 2017-04-08 17:09 | NUR ---
SPOKE WITH KRISHNA GONZALEZ ABOUT PT ABDOMINAL PAIN. SHE IS DEFERRING TO GASTROINTEROLOGY. HAVE NOW PAGED DR SEGOVIA. DR SEGOVIA WANTS TUBE FEEDINGS HELD, PEG TO GRAVITY AND ORDER A KUB
--- NOTE | 2017-04-08 18:10 | NUR ---
SISTER AT BEDSIDE FOR 6PM VISITATION. UPDATE PROVIDED. AWAITING IMAGING. PT HAS HAD SOME BROWN DRAINAGE FROM PEG TUBE.
--- NOTE | 2017-04-08 18:30 | NUR ---
PT SHOWING SOME DARKER OUTPUT FROM PEG TUBE. DOES HAVE AN OILY BASE TO IT, NOT SURE IF JUST BILE OR IF THERE IS POSSIBLY BLOOD IN IT WELL. DRAINAGE HAD BEEN A CREAMY BROWN COLOR PRIOR TO THIS.
--- NOTE | 2017-04-08 18:45 | NUR ---
IMAGING STAFF IN ROOM FOR KUB.
--- NOTE | 2017-04-08 19:00 | NUR ---
Received patient resting in bed with eyes open, assessment completed per flowsheet. Patient AO x4, calm and cooperative. Eyes PERRLA @ 4mm with brisk response, sclera is white. S1/S2 noted Controlled Afib on telemetry with HR 83, rythmic and regular. Breathing is slightly shallow and labored on BiPAP @ 40% with O2 sat 97%, Crackles noted bilateral upper and mid with diminished lower. Abdomen is firm and distended with bowel sounds hypoactive x4, tender to palpation. Abdominal Binder secured with G-tube site L upper abdomen to gravity, dark brown with slight red drainage noted. Jasmine secured with statlock, scant pale yellow drainage noted. Weakness noted all extremities with all pulses palpable, cap refill < 3 sec. Slight blue coloration noted on tips of fingers/toes, patient has HX of Reynauds. 2+ edema noted all extremities, slight pitting noted. Patient states aching abdominal pain 3/10, repositioned for comfort. Patient denies other needs at this time, all VSS and will continue to monitor.
--- NOTE | 2017-04-08 21:00 | NUR ---
Dr Walden at bedside for evaluation, discussed patient condition. New orders placed, will continue to monitor.
--- NOTE | 2017-04-08 22:55 | NUR ---
Reassessment completed per flowsheet, patient resting in bed with eyes closed on BiPAP. S1/S2 noted Controlled Afib on telemetry with HR 85, RVR noted. Breathing is slightly shallow and labored on BiPAP @ 40%, O2 sat 97%. Abdomen is distended and firm with bowel sounds hypoactive x4, abdominal binder secured. G-tube L upper abdomen with dark brown/bloody drainage to gravity, dressing CDI. Scant pale yellow urine noted in collection. Patient c/o abdominal aching 3/10, repositioned for comfort and will provide PRN medicaiton when available. No further needs at this time, all VSS and will continue to monitor.
[2017-04-09] VITALS (34 sets, daily range): BP systolic 76–159; BP diastolic 47–99
--- NOTE | 2017-04-09 01:06 | NUR ---
Complete bed bath/linen change performed, patient tolerated well. Abdominal pain 2/10 after PRN medication given. No further needs at this time, all VSS and will continue to monitor.
--- NOTE | 2017-04-09 02:50 | NUR ---
Reassessment completed per flowsheet, patient resting in bed with eyes closed. S1/S2 noted Controlled Afib on telemetry with HR 84. Breathing is slightly shallow and labored on BiPAP @ 40% with O2 sat 97%, crackles noted bilateral upper and mid with diminished lower. Trach 8.0 secured, dressing slightly bloody from insertion. All pulses palpable with cap refill < 3 sec, denies pain or other needs at this time. Will continue to monitor.
--- NOTE | 2017-04-09 05:00 | NUR ---
AM Labs collected. Patient resting in bed with eyes closed, denies pain or other needs at this time. All VSS and will continue to monitor.
[2017-04-09 05:08] LABS: BASOPHILS 0 % (0-2); EOSINOPHILS 0 % (0-7); HEMATOCRIT 34.5 % (36.0-48.0); HEMOGLOBIN 11.4 g/dL (12-16); IMMATURE GRANULOCYTES 1.5 % (0-5); LYMPHOCYTES 7.5 % (15-50); MCH 30.6 pg (26.0-34.0); MCV 92.5 fL (80.0-100.0); MONOCYTES 5.5 % (2-11); NEUTROPHILS 85.5 % (40-80); PLATELET COUNT 60 10x3/uL (130-400); RBC 3.73 10x6/uL (4.00-5.40); RDW 21.4 % (11.5-14.5)
[2017-04-09 05:10] LABS: WBC 5.9 10x3/uL (4.8-10.8)
--- NOTE | 2017-04-09 05:23 | NUR ---
UPDATE GIVEN TO SISTER MEMO OVER PHONE, UPSET THAT NO DOCTOR HAS SPOKEN WITH HER SINCE ICU ADMISSION, I REASSURED HER THAT I WOULD LET THE DAY CHARGE NURSE AND DAY SHIFT NURSE KNOW THAT SHE WOULD LIKE TO SPEAK WITH A PHYSCIAN
[2017-04-09 05:39] LABS: ANION GAP 19.3 mmol/L (8-16); BILIRUBIN - DIRECT 0.27 mg/dL (0.00-0.30); BILIRUBIN - INDIRECT 0.58 mg/dL (0.00-1.00); BILIRUBIN - TOTAL 0.85 mg/dL (0.2-1.3); CREATININE - SERUM 5.3 mg/dL (0.6-1.3); POTASSIUM - SERUM 4.3 mmol/L (3.5-5.1); PROTEIN - SERUM 4.5 g/dL (6.4-8.2)
[2017-04-09 05:45] LABS: ALBUMIN 2.3 g/dL (3.4-5.0)
--- NOTE | 2017-04-09 07:31 | NUR ---
Spoke to Dr Ortega per Dr Coelho for placement of dialysis Cath.
--- NOTE | 2017-04-09 07:40 | NUR ---
REPORT RECD PT CARE ASSUMED. PT IS ALERT, ANSWERS MOST QUESTIONS. PT WEARING BIPAP AT THIS TIME. AFIB CONTROLLED PER CM. PT HAS PEG TUBE TO GRAVITY, DRAINING DARK GREEN. ABD BINDER IN PLACE. SHARPE/SCDS IN PLACE. SEE SHIFT ASSESSMENT FOR FURTHER DETAIL. VSS. WILL MONITOR.
--- NOTE | 2017-04-09 09:44 | NUR ---
NUTRITION MONITORING & EVAL CHART REVIEWED. TUBE FEEDS CURRENTLY, NURSING REPORTS PEG TUBE TO GRAVITY AT THIS TIME. RD FOLLOWING
[2017-04-09 09:52] LABS: ANTI-GLOMERULAR BASMENT MEMBRN 3 units (0-20)
--- NOTE | 2017-04-09 10:00 | NUR ---
PT FAMILY UPDATED PER DR DIAMOND.
[2017-04-09 10:15] LABS: HEPATITIS C ANTIBODY <0.1 (0.0-0.9)
--- NOTE | 2017-04-09 12:00 | NUR ---
PT FAMILY AT BEDSIDE. PT REMAINS ON OXIMIZER, TOLERATING WELL. CONSENTS SIGNED FOR TRIALYSIS PLACEMENT AND DIALYSIS.
[2017-04-09 12:14] LABS: SPE - A/G RATIO 1.1 (0.7-1.7); SPE - ALBUMIN 2.2 g/dL (2.9-4.4); SPE - ALPHA-1 GLOBULIN 0.4 g/dL (0.0-0.4); SPE - ALPHA-2 GLOBULIN 0.4 g/dL (0.4-1.0); SPE - BETA GLOBULIN 0.6 g/dL (0.7-1.3); SPE - GAMMA GLOBULIN 0.7 g/dL (0.4-1.8); SPE - M-SPIKE Not Observed g/dL (Not Observed); SPE - TOTAL PROTEIN 4.2 g/dL (6.0-8.5)
--- NOTE | 2017-04-09 14:00 | NUR ---
DR MCDUFFIE HERE TO PLACE TRIALYSIS CATH.
[2017-04-09 14:19] LABS: ANCA - ANTIMYELOPEROXIDASE <9.0 U/mL (0.0-9.0); ANCA - ANTIPROTEINASE 3 <3.5 U/mL (0.0-3.5); ANCA - ATYPICAL <1:20 titer (Neg:<1:20); ANCA - CYTOPLASMIC <1:20 titer (Neg:<1:20); ANCA - PERINUCLEAR <1:20 titer (Neg:<1:20)
--- NOTE | 2017-04-09 14:25 | NUR ---
TRIALYSIS CATH IN POSITION. DIALYSIS IN PT ROOM.
--- NOTE | 2017-04-09 16:15 | NUR ---
1545- PT PUT ON LEVOPHED PER BRYON MOTT FOR HYPOTENSION SECONDARY TO DIALYSIS LEVOPHED TITRATED UP TO MAX OF [address] WIGGINS PAGED FOR ORDERS, DIALYSIS TURNED FROM 3 TO 1 GOAL, LEVOPHED REMAINS AT MAX. SYSTOLIC BP> 90
[2017-04-09 16:39] LABS: BASOPHILS 0.1 % (0-2); EOSINOPHILS 0 % (0-7); IMMATURE GRANULOCYTES 1.8 % (0-5); LYMPHOCYTES 4.4 % (15-50); MCH 30.1 pg (26.0-34.0); MCHC 32.4 g/dL (31.0-37.0); MCV 92.7 fL (80.0-100.0); MONOCYTES 4.5 % (2-11); NEUTROPHILS 89.2 % (40-80); RBC 3.99 10x6/uL (4.00-5.40); RDW 21.5 % (11.5-14.5)
[2017-04-09 16:43] LABS: WBC 9.9 10x3/uL (4.8-10.8)
[2017-04-09 16:46] LABS: PLATELET COUNT 26 10x3/uL (130-400)
--- NOTE | 2017-04-09 16:53 | NUR ---
PAGED DR WIGGINS PER CRITICAL PLATETE LEVEL. NO NEW ORDERS RECEIVED.
--- NOTE | 2017-04-09 17:12 | NUR ---
REPORT GIVEN TO LAWANDA CERON
--- NOTE | 2017-04-09 17:54 | NUR ---
DECREASED LEVOPHED TO 25MCG/MIN FOR BP OF 145/98. WILL CONTINUE TO MONITOR BP AND DECREASE LEVOPHED WHEN POSSIBLE.
--- NOTE | 2017-04-09 18:09 | NUR ---
DR. SEGOVIA HERE IN TO SEE PATIENT AND SPEAKING WITH PATIENTS FAMILY.
--- NOTE | 2017-04-09 18:42 | NUR ---
Mrs. Saenz had bedside hemodialysis today via her right ij Trialysis catheter from 1450 until 1750.. Average blood flow was 250 mls/minute due to elevated bun and being first treatment, Net fluid removed was 1000 mls. Pt. ended up on maxed dosing of pressors due to severe hypotension. This required me to have to decrease my goal. Post vital signs were: B/P: 149/98, HR: 107, Temp: 97.6, Resps: 20.
--- NOTE | 2017-04-09 18:45 | NUR ---
LEVOPHED IS DC'D AT THIS TIME PATIENT HAS CONSISTANT BP WHILE DECREASING MEDICATION. PATIENT IS FINISHED WITH DIALYSIS.
--- NOTE | 2017-04-09 19:17 | NUR ---
REPORT RECIEVED. ASSESSMENT COMPLETE PER FLOW SHEET. VSS DENIES NEEDS. DIALYSIS AT BEDSIDE. WILL CONTINUE TO MONITOR
--- NOTE | 2017-04-09 21:21 | NUR ---
FAMILY AT BEDSIDE. GIVEN UPDATE. VSS WILL CONTINUE TO MONITOR
--- NOTE | 2017-04-09 22:10 | NUR ---
PT PLACED ON BIPAP PER REQUEST. DENIES FURTHER NEEDS.
--- NOTE | 2017-04-09 23:13 | NUR ---
REASSESSMENT COMPLETE PER FLOW SHEET. VSS. NO NEW CHANGES. PT SLEEPING COMFORTABLY,. WILL CONTINUE TO MONITOR
[2017-04-10] VITALS (27 sets, daily range): BP systolic 102–158; BP diastolic 55–98
--- NOTE | 2017-04-10 00:10 | NUR ---
PT LEGAL OFFICER LIGHT. REQUEST UPDATE ON VS. GIVEN UDPATE. DENIES FURTHER NEEDS. REPOSITIONED ON L SIDE. WILL CONTIUE TO MONITOR
--- NOTE | 2017-04-10 01:15 | NUR ---
PT AWAKE WATCHING TV. DENIES PAIN OR NEEDS AT THIS TIME. TV TURNED DOWN PER REQUEST STATES WILL ATTEPMT TO SLEEP AT THIS TIME.
--- NOTE | 2017-04-10 02:20 | NUR ---
PT SLEEPING COMFORTABLY. WILL CONTINUE TO MONITOR
--- NOTE | 2017-04-10 03:14 | NUR ---
REASSESSMENT COMPLETEPER FLOW SHEET. VSS .NO NEW CHANGES RADIOLOGY AT BEDSIDE. WILL CONTINUE TO MONTIOR
[2017-04-10 04:39] LABS: BASOPHILS 0.1 % (0-2); EOSINOPHILS 0 % (0-7); HEMATOCRIT 30.5 % (36.0-48.0); IMMATURE GRANULOCYTES 6.5 % (0-5); LYMPHOCYTES 3.8 % (15-50); MCH 30.8 pg (26.0-34.0); MCHC 32.8 g/dL (31.0-37.0); MCV 93.8 fL (80.0-100.0); MONOCYTES 4.1 % (2-11); NEUTROPHILS 85.5 % (40-80); RBC 3.25 10x6/uL (4.00-5.40); RDW 21.6 % (11.5-14.5)
[2017-04-10 04:40] LABS: ANION GAP 15.5 mmol/L (8-16); CALCIUM 7.8 mg/dL (8.5-10.1); CARBON DIOXIDE 26.3 mmol/L (21.0-32.0); POTASSIUM - SERUM 3.8 mmol/L (3.5-5.1)
[2017-04-10 04:43] LABS: PLATELET COUNT 29 10x3/uL (130-400); WBC 15.7 10x3/uL (4.8-10.8)
--- NOTE | 2017-04-10 08:16 | NUR ---
UP IN BED AWAKE AT THIS TIME. OXIMIZER IN PLACE AT 6L PT OXYGEN SATURATION AT 97%. NO ACUTE DISTREESS NOTED. PT ALERT AND ORIENTED. ABLE TO STATE NEEDS. WILL CONTINUE PLAN OF CARE.
[2017-04-10 08:18] LABS: UPE RAND - ALBUMIN 60.7 % (()); UPE RAND - ALPHA 1 GLOBULIN 1.4 % (()); UPE RAND - ALPHA 2 GLOBULIN 5.1 % (()); UPE RAND - BETA GLOBULIN 12.5 % (()); UPE RAND - GAMMA GLOBULIN 20.3 % (())
--- NOTE | 2017-04-10 08:47 | NUR ---
RENAL REHABILITATION PROGRAM MANAGER IN PT ROOM AT THIS TIME. ORDERS RECIEVED. NO ACUTE DISTRESS NOTED. WILL CONTINUE PLAN OF CARE.
[2017-04-10 10:29] LABS: APTT 41.2 SECONDS (22.8-39.4); INR 2.67 (0.85-1.17); PROTIME 28.6 SECONDS (11.6-15.0)
--- NOTE | 2017-04-10 11:12 | NUR ---
UP IN BED WATCHING TV AT THIS TIME. NO ACUTE DISTRESS NOTED. WILL CONTINUE PLAN OF CARE.
[2017-04-10 11:52] LABS: D-DIMER-QUANTITATIVE 5.84 ug/mLFEU (0.20-0.54)
--- NOTE | 2017-04-10 13:06 | NUR ---
CALLED DR DIAMOND TO NOTIFY OF LAB RESULTS OF ELEVATED DDIMER. STILL WAITING FOR ULTRASOUND TO CHECK LEFT ARM TO R/O DVT. PT IS RECIEVING DIALYSIS AT THIS TIME AND ULTRASOUND STATED THEY WOULD US ARM AFTER DIANYSIS IS COMPLETE. NO ACUTE DISTRESS NOTED AT THIS TIME. WILL CONTINUE PLAN OF CARE.
--- NOTE | 2017-04-10 15:52 | NUR ---
SITTING UP IN BED AWAKE AT THIS TIME. DENIES ANY NEEDS. NO ACUTE DISTRESS NOTED. WILL CONTINUE PLAN OF CARE.
--- NOTE | 2017-04-10 16:39 | NUR ---
CALLED ULTRASOUND AT THIS TIME TO SEE WHEN THEY WERE PLANNING TO ULTRASOUND PTS LT ARM TO R/O DVT. THEY STATED THEY WOULD BE BY IN A LITTLE WHILY TO US PT. WILL CONTINUE PLAN OF CARE.
--- NOTE | 2017-04-10 17:05 | NUR ---
TOTAL BED CHANGE PROVIDED AT THIS TIME. BED BATH ALSO OFFERED AT THIS TIME AND PT REFUSED BATH. PT UP IN BED AT THIS TIME. ULTRASOUND IN ROOM AT THIS TIME. NO ACUTE DISTRESS NOTED. WILL CONTINUE PLAN OF CARE.
--- NOTE | 2017-04-10 19:25 | NUR ---
SHIFT ASSESSMENT COMPLETED. SEE ASSESSMENT FLOWSHEET FOR DETAILS. THOUGHT SHE WAS AT [facility], REORIENTED TO PLACE, NUT ORIENTED OTHERWISE. REPORTS "ALL OVER" PAIN A 4/10 ON NUMBER SCALE. REPORTS IT WAS LIKE THIS PRIOR TO HOSPITALIZATION ALSO. WILL MONITOR.
--- NOTE | 2017-04-10 19:40 | NUR ---
DR. VALLES RETURNED DAY SHIFTS PAGE. INFORMED OF NO DVT IN LEFT ARM AND QUESTIONED IF SHE WANTED TO TRANSFUSE ANY PLATELETS. DENIES TO TRANSFUSE AT THIS TIME. ONLY IF <20. DR. LEIVA AT BEDSIDE FOR EXAM/CONSULTATION. WILL MONITOR.
--- NOTE | 2017-04-10 20:20 | NUR ---
DR. SEGOVIA AT BEDSIDE FOR ROUNDING. DOES NOT WANT TO START TUBE FEEDINGS YET. OK TO FOLLOW TRANSFUSION ORDERS ALREADY PRESCRIBED IF NEEDED. DOES NOT NEED NG TUBE AT THIS TIME. ORDERS FOR TAP WATER ENEMAS. WILL MONITOR.
--- NOTE | 2017-04-10 20:50 | NUR ---
WARM TAP WATER ENEMA GIVEN APPROX. 300-500ML INSTILLED. LOTS COMING RIGHT BACK OUT OF RECTUM. INSTRUCTED TO TRY TO HOLD SOME IN. POSITIONED ON LEFT SIDE AND WILL RETURN IN 10 MINUTES. CALL LIGHT WITHIN REACH.
--- NOTE | 2017-04-10 21:00 | NUR ---
NO BM RESULTS. WHITE PAD SATURATED WITH CLEAR LIQUID (WATER). CLEANSED PERINEAL AREA. NEW LINENS PLACED UNDERNEATH HER AND REPOSITIONED TO RT SIDE AFTER CLEANING. SISTER AT BEDSIDE FOR VISITATION. UPDATE GIVEN. WILL MONITOR.
--- NOTE | 2017-04-10 22:30 | NUR ---
CONFUSED. STATING THE PIZZA ROLLS ARE DONE. REORIENTED. ASKED IF SHE WAS HURTING, REPORTS "NO". INFORMED SHE HAS ORDERED PAIN MEDS IF SHE NEEDED THEM.
--- NOTE | 2017-04-10 23:10 | NUR ---
REASSESSMENT COMPLETED. SEE ASSESSMENT FLOWSHEET. WILL MONITOR.
[2017-04-11] VITALS (27 sets, daily range): BP systolic 105–167; BP diastolic 63–99
--- NOTE | 2017-04-11 00:45 | NUR ---
FLUSHED IV AFTER ALBUMIN INFUSED. EYES CLOSED. RESTING. WILL MONITOR.
--- NOTE | 2017-04-11 02:00 | NUR ---
TURNED TO LEFT SIDE. 2ND WARM TAP WATER ENEMA GIVEN. WILL LEAVE ON LEFT SIDE FOR 10-15 MINUTES TO SEE IF SHE CAN RETAIN SOME WATER TO TO HAVE A BM. MINIMAL BROWN PARTICLES EXITING THE RECTUM BUT SCANT AMOUNT. CONFUSED. REORIENTED. WILL MONITOR.
--- NOTE | 2017-04-11 02:30 | NUR ---
BED BATH AND LINEN CHANGE COMPLETED. PEG TUBE DRSG CHANGED. LOTIONED SKIN THROUGHOUT BODY. WILL MONITOR.
--- NOTE | 2017-04-11 03:15 | NUR ---
PORTABLE CHEST XRAY AND KUB COMPLETED. TOLERATED WELL.
--- NOTE | 2017-04-11 04:20 | NUR ---
AM LABS DRAWN VIA LEFT UPPER ARM PICC LINE.
[2017-04-11 04:39] LABS: ANION GAP 15.3 mmol/L (8-16); CARBON DIOXIDE 25.2 mmol/L (21.0-32.0); CREATININE - SERUM 3.5 mg/dL (0.6-1.3); POTASSIUM - SERUM 3.5 mmol/L (3.5-5.1)
[2017-04-11 04:42] LABS: HEMATOCRIT 27.6 % (36.0-48.0); HEMOGLOBIN 9.1 g/dL (12-16); MCH 31.1 pg (26.0-34.0); MCV 94.2 fL (80.0-100.0); PLATELET COUNT 24 10x3/uL (130-400); RBC 2.93 10x6/uL (4.00-5.40); RDW 21.9 % (11.5-14.5)
[2017-04-11 04:43] LABS: BASOPHILS 0.1 % (0-2); EOSINOPHILS 0 % (0-7); IMMATURE GRANULOCYTES 1.6 % (0-5); NEUTROPHILS 93.3 % (40-80)
--- NOTE | 2017-04-11 05:44 | NUR ---
IV BUMEX GIVEN PRESCRIBED. WILL MONITOR.
--- NOTE | 2017-04-11 06:25 | NUR ---
PLACED ONTO BEDPAN AFTER STATING SHE NEEDED TO HAVE A BM.
--- NOTE | 2017-04-11 07:25 | NUR ---
UP IN BED AWAKE AT THIS TIME CONFUSED. REORIENTATION PROVIDED, WAS UNABLE TO REORIENTATE PT. NO ACUTE DISTRESS NOTED. PT TURNED Q2H. WILL CONTINUE PLAN OF CARE.
--- NOTE | 2017-04-11 09:10 | NUR ---
1 U PRBC ADMININISTRATION INITIATION AT THIS TIME PER ORDERS. NO ACUTE DISTRESS NOTED. WILL CONTINUE PLAN OF CARE.
--- NOTE | 2017-04-11 11:24 | NUR ---
NO ACUTE DISTRESS NOTED. NO ADVERSE REACTIONS TO RECIEVING BLOOD. PT STILL CONFUSED, TALKING TO SELF OUTLOUD. WILL CONTINUE PLAN OF CARE.
--- NOTE | 2017-04-11 13:23 | NUR ---
RECIEVED CALL FROM DR VALLES AT THIS TIME, ORDERS RECIEVED FOR 1U PLATELETS. DR VALLES STATED SHE WOULD BE BY LATER TODAY TO SEE PT. NO ACUTE DISTRESS. WILL CONTINUE PLAN OF CARE.
--- NOTE | 2017-04-11 16:00 | NUR ---
DIALYSIS IN ROOM AT THIS TIME WITH PT. NO ACUTE DISTRESS NOTED. WILL CONTINUE PLAN OF CARE.
--- NOTE | 2017-04-11 17:02 | NUR ---
SCHEDULED MEDS HELD UNTIL PT COMPLETES DIALYSIS TODAY.
--- NOTE | 2017-04-11 18:06 | NUR ---
DR VALLES SPEAKING WITH PT SISTER AT THIS TIME. PT STILL ON DIALYSIS AT THIS TIME, VSS. NO ACUTE DISTRESS NOTED. WILL CONTINUE PLAN OF CARE.
--- NOTE | 2017-04-11 18:57 | NUR ---
DR LYLES CONSULTED, CALLED AND NOTIFIED AT THIS TIME. ORDERS RECIEVED. WILL CONTINUE PLAN OF CARE.
--- NOTE | 2017-04-11 21:18 | NUR ---
PT CONFUSED AND DISORIENTED X3. PULLING O2 OFF, AND ATTEMPTS TO PULL AT TRIALYSIS CATH. BILATERAL WRIST RESTRAINTS IN USE PER ORDER. CPOC.
[2017-04-12] VITALS (23 sets, daily range): BP systolic 123–174; BP diastolic 68–103
--- NOTE | 2017-04-12 04:00 | NUR ---
PT REPOSITIONED WITH BONY PROMINENCES BRIDGED. PT REMAINS CONFUSED AND DISORIENTED. PARTIAL LINEN CHANGE COMPLETE. CPOC.
[2017-04-12 04:52] LABS: HEMATOCRIT 32.5 % (36.0-48.0); HEMOGLOBIN 10.8 g/dL (12-16); MCH 30.8 pg (26.0-34.0); MCHC 33.2 g/dL (31.0-37.0); MCV 92.6 fL (80.0-100.0); RBC 3.51 10x6/uL (4.00-5.40); RDW 21.2 % (11.5-14.5); WBC 27.6 10x3/uL (4.8-10.8)
[2017-04-12 04:53] LABS: BASOPHILS 0.1 % (0-2); EOSINOPHILS 0 % (0-7); IMMATURE GRANULOCYTES 0.9 % (0-5); LYMPHOCYTES 1.9 % (15-50); MONOCYTES 2.5 % (2-11); NEUTROPHILS 94.6 % (40-80); PLATELET COUNT 31 10x3/uL (130-400)
[2017-04-12 05:00] LABS: APTT 38.5 SECONDS (22.8-39.4)
[2017-04-12 05:03] LABS: ALBUMIN 3.4 g/dL (3.4-5.0); ANION GAP 20.3 mmol/L (8-16); BILIRUBIN - TOTAL 1.52 mg/dL (0.2-1.3); CALCIUM 8.9 mg/dL (8.5-10.1); CARBON DIOXIDE 24.1 mmol/L (21.0-32.0); CREATININE - SERUM 2.9 mg/dL (0.6-1.3); PHOSPHOROUS 5.2 mg/dL (2.5-4.9); POTASSIUM - SERUM 3.4 mmol/L (3.5-5.1); PRE-ALBUMIN 11.4 mg/dL (18.0-35.7); PROTEIN - SERUM 5.6 g/dL (6.4-8.2)
[2017-04-12 05:06] LABS: INR 1.82 (0.85-1.17)
--- NOTE | 2017-04-12 11:30 | NUR ---
RECIEVED CALL FROM DR LEIVA ASKING FOR DR WIGGINS TO CALL HIM REGARDING PT. CALLED DR WIGGINS AT THIS TIME AND NOTIFIED. WILL CONTINUE PLAN OF CARE.
[2017-04-12 13:07] LABS: HEPARIN INDUCED PLATELET AB 0.229 OD (0.000-0.400)
[2017-04-12 16:00] LABS: BASOPHILS 0.1 % (0-2); EOSINOPHILS 0 % (0-7); HEMATOCRIT 32.2 % (36.0-48.0); HEMOGLOBIN 10.3 g/dL (12-16); IMMATURE GRANULOCYTES 1.2 % (0-5); LYMPHOCYTES 1.4 % (15-50); MCH 30.2 pg (26.0-34.0); MCV 94.4 fL (80.0-100.0); MEAN PLATELET VOLUME 11.1 fL (7.4-10.4); MONOCYTES 3.5 % (2-11); NEUTROPHILS 93.8 % (40-80); PLATELET COUNT 127 10x3/uL (130-400); RBC 3.41 10x6/uL (4.00-5.40); RDW 21.8 % (11.5-14.5); WBC 27.8 10x3/uL (4.8-10.8)
--- NOTE | 2017-04-12 16:03 | NUR ---
HEART RATE INCREASED ABOVE 120 AFIB, ORDERED BY DR DIAMOND OKAY TO INCREASE CARDIZEM DRIP TO 10ML/HOUR FROM 5ML/HOUR NOTED. CARDIZEM INCREASED TO 10ML/HOUR. WILL CONTINUE PLAN OF CARE.
[2017-04-12 16:07] LABS: INR 1.97 (0.85-1.17); PROTIME 22.4 SECONDS (11.6-15.0)
--- NOTE | 2017-04-12 16:20 | NUR ---
LABS RECIEVED ON PT FROM CBC/INR. RESULTS CALLED IN TO DR LYLES REQUESTED. DR LYLES STATED HE STILL WANTED TO TRY TO HAVE THE RENAL BIOPSY DONE TOMORROW. STATED TO HAVE 3 UNITS OF FFP ADMIN BUT NOT UNTIL AROUND 8 OR 9 TONIGHT. ALSO ORDERS TO OBTAIN CBC AND AND INR TOMORROW MORNING WITH AM LABS AND HAVE THOSE LABS CALLED IN TO HIM AT [phone]. [address] PL[address] ORDERS.
--- NOTE | 2017-04-12 17:31 | NUR ---
PT STILL VERY CONFUSED. ONLY ABLE TO ANSWER SIMPLE QUESTIONS SUCH HER NAME. REORIENTATION PROVIDED FREQUENTLY WITH NO SUCCESS. TURNED Q2H. ORAL CARE PROVIDED. WILL CONTINUE PLAN OF CARE.
[2017-04-12 18:06] LABS: PLT AB - HLA CLASS 1 Negative (Negative); PLT AB - IIb IIIa Negative (Negative); PLT AB - Ia IIa Negative (Negative); PLT AB - Ib IX Negative (Negative)
--- NOTE | 2017-04-12 18:24 | NUR ---
DR WIGGINS HERE AT THIS TIME. ORDERS RECIEVED.
--- NOTE | 2017-04-12 18:43 | NUR ---
DR WIGGINS SPEAKING WITH PTS SISTER AT THIS TIME, UPDATE GIVEN. WILL CONTINUE PLAN OF CARE.
--- NOTE | 2017-04-12 19:45 | NUR ---
SHIFT ASSESSMENT COMPLETE. PT IS CONFUSED AND DISORIENTED TO PERSON, PLACE, TIME AND SITUATION. SPEECH IS GARBLED AND INCOMPREHENSIBLE. SHE IS STAREING TO THE LEFT SIDE OF THE ROOM WITH HER MOUTH SLIGHTLY OPEN. UNABLE TO FOLLOW SIMPLE COMMANDS AT THIS TIME. PUPILS 3 MM, BRISK REACTION TO LIGHT. NC @ 3L/MIN. TRIALYSIS CATH DRESSING ON R IJ, CDI. S1S2 AUDIBLE, ATRIAL FIB, HR 92 VIA TELEMETRY. BILAT CRACKLES THROUGHOUT ALL LOBES. HYPOACTIVE BOWEL SOUNDS IN ALL QUADRANTS. G TUBE DRESSING INTACT, BROWN DRAINAGE. ABDOMINAL BINDER REMOVED AND SKIN INSPECTED, WNL. PUT ABD BACK ON. SHARPE CATH IN PLACE WITH A SCANT AMOUNT OF YELLOW URINE. GENERALIZED SWELLING. BROWN, TIGHT SKIN WITH GENERALIZED SCABS AND SORES. RADIAL PULSE PALP. PEDAL PULSES FOUND WITH DOPPLER, IRREGULAR. SOLES OF THE FEET ARE PURPLE/BLUE AT THIS TIME, COLDER THAN THE REST OF THE BODY. IV FLUIDS: PROTONIX @ 10, DILTIAZEM @ 10, NS @ 10 ML/HR. BP 123/90, TEMP 97.3, AXILLARY. BED IN LOWEST POSITION. WILL CONTINUE TO MONITOR.
--- NOTE | 2017-04-12 21:10 | NUR ---
MEMO IN ROOM WITH PT. SPOKE WITH HER AND UPDATED HER ON THE STATUS OF HER SISTER. PT ISN'T RESPONDING TO SISTER WHEN SHE SPEAKS TO HER. SHE CONTINUES TO LOOK AT THE L SIDE OF THE ROOM WITH HER MOUTH SLIGHTLY OPENED. RESTRAINTS RELEASED AND SKIN ASSESSED, WNL. BED IN LOWEST POSITION. WILL CONTINUE TO MONITOR.
--- NOTE | 2017-04-12 21:45 | NUR ---
STARTED FFP. PRIMED TUBING WITH NS. VSS. T: 97.6, HR: 95, RR: 16, BP: 146/85 IN THE ROOM WITH THE PT AND MONITORING VS Q 15 MIN
--- NOTE | 2017-04-12 23:30 | NUR ---
PT IS LOOKING AT L SIDE OF THE ROOM. EYES HAVE NOT BLINKED. FFP INFUSING. VSS. REASSESSMENT COMPLETE. BILAT CRACKLES IN ALL LOBES. S1S2 AUDIBLE. HR UPPER 90'S, A FLUTTER VIA TELEMETRY. ABD BINDER REMOVED AND SKIN ASSESSED, WNL. G TUBE DRESSING INTACT. HYPOACTIVE BOWEL SOUNDS IN ALL QUADS. SHARPE DRAINING A SCANT AMOUNT OF YELLOW URINE. THE SOLES OF HER FEET CONTINUE TO BE PURPLE/BLUE DISCOLORATION. DOPPLER USED FOR PEDAL PULSES. WILL CONTINUE TO MONITOR.
[2017-04-13] VITALS (24 sets, daily range): BP systolic 138–170; BP diastolic 85–98
--- NOTE | 2017-04-13 01:20 | NUR ---
PT UNABLE TO FOLLOW ANY SIMPLE COMMANDS. FFP INFUSING. VSS. EYES CONTINUE TO STAY OPEN. FEET ARE SLIGHTLY COLDER THAN THE REST OF THE BODY, AND HAVE A BLUE/PURPLE DISCOLORATION. CALL LIGHT IN REACH. WILL CONTINUE TO MONITOR.
--- NOTE | 2017-04-13 03:00 | NUR ---
REASSESSMENT COMPLETE. REPOSITONED FOR COMFORT. THIRD UNIT OF FFP INFUSING. NO CHANGES AT THIS TIME. PT IS MOVING UPPER EXTREMITIES SOME, BUT SHE IS VERY WEAK. CALL LIGHT IN REACH. WILL CONTINUE TO MONITOR.
--- NOTE | 2017-04-13 05:00 | NUR ---
RT, RN, AND CHARGE NURSE AT BEDSIDE. BIPAP ON. HR DECLINES TO LOW 70'S AND THEN REBOUNDS TO THE 110'S. CALLED MEMO, PT'S SISTER, TO INFORM HER OF THE NEWS. SHE STATES THAT SHE WILL BE HERE IN APPROX. 30 MIN. PT EYES ARE HALF WAY OPEN. NO MOVEMENT IN HER HANDS OR HER FEET. O2 SAT 97%. WILL CONTINUE TO MONITOR.
[2017-04-13 05:24] LABS: BASOPHILS 0.1 % (0-2); EOSINOPHILS 0 % (0-7); HEMATOCRIT 29.9 % (36.0-48.0); HEMOGLOBIN 9.5 g/dL (12-16); IMMATURE GRANULOCYTES 1.3 % (0-5); MCH 30.4 pg (26.0-34.0); MCHC 31.8 g/dL (31.0-37.0); MCV 95.8 fL (80.0-100.0); MEAN PLATELET VOLUME 12.8 fL (7.4-10.4); NEUTROPHILS 92.6 % (40-80); PLATELET COUNT 97 10x3/uL (130-400); RBC 3.12 10x6/uL (4.00-5.40); RDW 21.7 % (11.5-14.5); WBC 22.5 10x3/uL (4.8-10.8)
[2017-04-13 05:28] LABS: APTT 37.6 SECONDS (22.8-39.4); INR 1.42 (0.85-1.17); PROTIME 17.2 SECONDS (11.6-15.0)
[2017-04-13 05:37] LABS: ALBUMIN 3.7 g/dL (3.4-5.0); ANION GAP 16.2 mmol/L (8-16); BILIRUBIN - TOTAL 1.4 mg/dL (0.2-1.3); CALCIUM 8.7 mg/dL (8.5-10.1); CARBON DIOXIDE 26.9 mmol/L (21.0-32.0); CREATININE - SERUM 3.1 mg/dL (0.6-1.3); POTASSIUM - SERUM 4.1 mmol/L (3.5-5.1); PROTEIN - SERUM 6.3 g/dL (6.4-8.2)
--- NOTE | 2017-04-13 06:15 | NUR ---
CALLED DR. LYLES WITH THE UPDATE ON THE CBC/INR. NEW ORDERS RECIEVED: 2 UN FFP, 1 UN PLATELETS, CT GUIDED RENAL BIOPSY.
--- NOTE | 2017-04-13 07:00 | NUR ---
SHIFT ASSESSMENT COMPLETED, PT ALERT, MAKES GARBLED NOISE BUT UNABLE TO TALK, BIPAP IN PLACE, NO SIGNS OF PAIN, PICC TO LEFT UPPER ARM AND TRIAYSIS CATH RIGHT IJ DRESSINGS CDI, NO NEEDS NOTED, REPOSITIONED, WILL CONTINUE TO MONITOR
--- NOTE | 2017-04-13 09:00 | NUR ---
APPROX [phone] LYLES AFTER SPEAKING WITH DR WIGGINS AND FAMILY WHO WANT TO HOLD ON ADMINSERING BLOOD PRODUCTS DUE TO FLUID STATE AND INABILITY TO DIALYZE AT THIS TIME,VSS, NO NEEDS NOTED, REPOSITIONED, WILL CONTINUE TO MONITOR
--- NOTE | 2017-04-13 09:30 | NUR ---
NUTRITION MONITORING & EVAL CHART REVIEWED. NOTE DNR STATUS, POSSIBLE HOSPICE. TUBE FEEDS REMAIN OFF. RD FOLLOWING
--- NOTE | 2017-04-13 09:55 | NUR ---
SPOKE WITH DR LYLES CONCERNING HOLDING BLOOD PRODUCTS RELATED TO FLUID BALANCE AND INABILITY TO TOLERATE DIALYSIS PER DR WIGGINS PT ON BIPAP AND UNABLE TO TOLERATE COMING OFF TO HAVE BIOPSY DONE, HE ASKED THAT DR CEDILLO BE NOTIFIED.
--- NOTE | 2017-04-13 11:08 | NUR ---
PT REPOSITIONED, CONTINUES ON BIPAP, RESPIRATIONS SHALLOW, NO PAIN OR NEEDS NOTED, VSS, WILL CONTIUE TO MONITOR
--- NOTE | 2017-04-13 12:53 | NUR ---
DR CUNHA ON UNIT. UPDATED ON PATIENT CONDITION AND LET HIM KNOW DR RAFAL HAD ORDERED SOME BLOOD PRODUCTS, BUT PT NOT ABLE TO TOLERATE THE ADDITIONAL FLUIDS AND/OR DIALYSIS. DR WIGGINS HAS SPOKEN WITH SISTER, MEMO, ABOUT COMFORT CARE. THAT IS THE DIRECTION SHE WANTS TO GO.
--- NOTE | 2017-04-13 12:56 | NUR ---
PT CONTINUES ON BIPAP, RESPIRATIONS SHALLOW, NO SIGNS OF PAIN, REPOSITIONED, VSS, WILL CONTINUE TO MONITOR
--- NOTE | 2017-04-13 15:06 | NUR ---
PT WITH NO SIGNS OF PAIN AFTER MORPHINE ADMINSITRATION, FAMILY AT BEDSIDE FOR VISITATION, VSS, NO NEEDS NOTED, WILL CONTINUE TO MONITOR
--- NOTE | 2017-04-13 16:57 | NUR ---
PT REPOSITIONED, NO SIGNS OF PAIN, VSS, WILL CONTINUE TO MONITOR
--- NOTE | 2017-04-13 19:00 | NUR ---
SHIFT ASSESSMENT COMPLETE. PT IS CONFUSED AND WORDS ARE GARBLED, INCOMPREHENSIBLE SOUNDS. BIPAP ON, FI02 @ 40%. SKIN IS TIGHT AND PT HAS GENERALIZED EDEMA. S1S2 AUDIBLE. HR 100, ATRIAL FLUTTER VIA TELEMETRY. SHALLOW BREATH SOUNDS WITH CRACKLES HEARD THOUGHOUT ALL LOBES. DISTENDED ABDOMEN WITH G TUBE DRESSING CDI. ABD BINDER IN PLACE. HYPOACIVE BOWEL SOUNDS THROUGH ALL LOBES. HANDS AND FEET ARE PURPLE/BLUE DISCOLORATION. REMOVED SOCKS TO EXAMINE FEET AND PT WAS ABLE TO LOCALIZE PAIN IN HER FEET. PUT SOCKS BACK ON AND PT APPEARD TO BE MORE CALM AND FELL ASLEEP. RADIAL PULSE PALP, PEDAL PULSES FOUND WITH DOPPLER, IRREGULAR IN RHYTHM. SHARPE CATH IN PLACE, SCANT AMOUNT OF YELLOW URINE COLLECTED. G TUBE BAG HAS BROWN RESIDUE. RESTRAINTS AND SCDS REMOVED AND SKIN INSPECTED, WNL FOR PT. MEJÍA SKIN, GENERALIZED SCABS/SORES OVER BODY. REDDENED AREA ON BUTTOCKS. REPOSITONED FOR COMFORT. CALL LIGHT IN REACH. WILL CONTINUE TO MONITOR.
--- NOTE | 2017-04-13 21:00 | NUR ---
SISTER AT BEDSIDE. SHE INFORMED ME THAT HER BROTHER'S PLANE WILL NOT LAND UNTIL 2 AM AND ASKED IF THAT WOULD BE OKAY FOR THEM TO COME IN AT THAT TIME. I EXPLAINED TO HER THAT I HAD NO PROBLEM WITH THAT. SHE AND HER BROTHER ARE THEN GOING TO DECIDE IF THEY ARE GOING TO CONTINUE WITH HOSPICE CARE. PT IS SLEEPING AT THIS TIME WITH BIPAP ON. VSS STABLE. BED IN LOWEST POSITION. LIGHT OUT. WILL CONTINUE TO MONITOR.
--- NOTE | 2017-04-13 23:00 | NUR ---
REASSESSMENT COMPLETE. NO CHANGES AT THIS TIME. COMPLETE BED BATH AND LINEN CHANGE. PT HAD A SMALL BM. DARK BROWN, THICK CONSISTENCY. VSS. PT ABLE TO LOCALIZE PAIN. CALL LIGHT IN REACH. RESTRAINTS REMOVED AT THIS TIME. PT IS NOT SHOWING ANY SIGNS OF PULLING AT HER DRESSINGS OR LINES. JACTIAN OPEN. WILL CONTINUE TO MONITOR.
[2017-04-14] VITALS (12 sets, daily range): BP systolic 148–172; BP diastolic 91–126
--- NOTE | 2017-04-14 01:00 | NUR ---
PT RESTING PEACEFULLY. VSS. NO CHANGES AT THIS TIME. WILL CONTINUE TO MONITOR.
--- NOTE | 2017-04-14 03:00 | NUR ---
PT'S SISTER AND BROTHER AT BEDSIDE. PT IS CALM AT THIS TIME. UPDATED THE FAMILY. NO CHANGES AT THIS TIME. VSS. WILL CONTINUE TO MONITOR.
[2017-04-14 04:44] LABS: BASOPHILS 0.1 % (0-2); EOSINOPHILS 0 % (0-7); HEMATOCRIT 30.3 % (36.0-48.0); HEMOGLOBIN 9.8 g/dL (12-16); IMMATURE GRANULOCYTES 1.7 % (0-5); LYMPHOCYTES 1.5 % (15-50); MCH 30.8 pg (26.0-34.0); MCHC 32.3 g/dL (31.0-37.0); MCV 95.3 fL (80.0-100.0); MONOCYTES 4.6 % (2-11); NEUTROPHILS 92.1 % (40-80); PLATELET COUNT 61 10x3/uL (130-400); RBC 3.18 10x6/uL (4.00-5.40); RDW 21.1 % (11.5-14.5); WBC 18.4 10x3/uL (4.8-10.8)
[2017-04-14 04:57] LABS: ALBUMIN 3.6 g/dL (3.4-5.0); ANION GAP 17.9 mmol/L (8-16); BILIRUBIN - TOTAL 1.74 mg/dL (0.2-1.3); CALCIUM 8.7 mg/dL (8.5-10.1); CARBON DIOXIDE 25.1 mmol/L (21.0-32.0); CREATININE - SERUM 3.5 mg/dL (0.6-1.3); PROTEIN - SERUM 5.7 g/dL (6.4-8.2)
--- NOTE | 2017-04-14 05:30 | NUR ---
PT TRYING TO COMMUNICATE AT THIS TIME. GARBLED SPEECH. REPOSITONED FOR COMFORT. WILL CONTINUE TO MONITOR.
--- NOTE | 2017-04-14 07:00 | NUR ---
PT ON BIPAP, NONVERBAL, MAKES MOANING NOISES WHEN TOUCHED/MOVED, RESPIRATIONS SHALLOW AND UNEVEN AT TIMES, PEG IN PLACE PER ASPIRATION, REPOSITIONED, NO NEEDS NOTED, WILL CONTINUE TO MONITOR
--- NOTE | 2017-04-14 09:00 | NUR ---
PRN MORPHINE GIVEN FOR PAIN, UNABLE TO VERBALIZE LOCATION OF PAIN BUT [place], USING [facility]NSON PAIN SCALE, FAMILY AT BEDSIDE FOR VISTATION, REQUESTING HOSPICE, HOSPICE TO BE CONSULTED
--- NOTE | 2017-04-14 09:43 | NUR ---
HEART RATE IRREGULAR VARIES FROM 60'S-110'S, RESPIRATIONS UNEVEN AND RAPID AT TIMES, PRN ATIVAN ADMINISTERED
--- NOTE | 2017-04-14 09:53 | NUR ---
04/14/2017 9:49 DCP: Discharge Planning CM met with family to discuss hospice options per their request - met with both patient's sister & brother. They are very familiar with hospice services - answered their questions regarding [facility]. They wish to proceed. Order rec'd for Hospice eval & admit. Referral faxed and called to [facility]. CM will follow.
--- NOTE | 2017-04-14 11:00 | NUR ---
NO CHANGES NOTED, PT REPOSITIONED, HOSPICE CONSULTING, WILL CONTIUE TO OBSERVE
--- NOTE | 2017-04-14 12:57 | NUR ---
04/14/2017 12:52 DCP: Discharge Planning Rec'd message from Elena with [facility] - patient is appropriate for [facility] & will be admitted this afternoon.
== END 2017-04-14 13:02 | disposition hospice, inpatient (51) | DRG 811 ==
LOC: D.MS 09:53 → D.OPS 09:53 → D.PAN 12:15 → D.MS 14:43 → D.OPS 14:44 → D.MS 04-02 16:59 → D.ICU 04-02 16:59 → D.OPS 04-02 16:59 → D.ICU 04-05 03:47 → D.MS 04-05 03:47 → D.ICU 04-05 03:48 → D.MS 04-15 09:55 → D.ICU 04-15 09:55
PROVIDERS: Emergency Medicine; Internal Medicine Gastroenterology; Internal Medicine Hematology & Oncology; Internal Medicine Medical Oncology; Internal Medicine Nephrology; Internal Medicine Pulmonary Disease; Surgery; ADMIT Family Medicine
PROC: 0W3P8ZZ Control Bleeding in Gastrointestinal Tract, Via Natural or Artificial Opening Endoscopic (ICD-10-PCS; 2017-04-01)
PROC: 02HV33Z Insertion of Infusion Device into Superior Vena Cava, Percutaneous Approach (ICD-10-PCS; 2017-04-02)
PROC: B548ZZA Ultrasonography of Superior Vena Cava, Guidance (ICD-10-PCS; 2017-04-02)
PROC: 0DH63UZ Insertion of Feeding Device into Stomach, Percutaneous Approach (ICD-10-PCS; principal; 2017-04-02 08:30)
PROC: 05HM33Z Insertion of Infusion Device into Right Internal Jugular Vein, Percutaneous Approach (ICD-10-PCS; 2017-04-09)
PROC: B543ZZA Ultrasonography of Right Jugular Veins, Guidance (ICD-10-PCS; 2017-04-09)
DX: D62 Acute posthemorrhagic anemia (principal); R53.2 Functional quadriplegia; E43 Unspecified severe protein-calorie malnutrition; J96.02 Acute respiratory failure with hypercapnia; J96.01 Acute respiratory failure with hypoxia; G93.41 Metabolic encephalopathy; N17.9 Acute kidney failure, unspecified; I13.0 Hypertensive heart and chronic kidney disease with heart failure and stage 1 through stage 4 chronic kidney disease, or unspecified chronic kidney disease; I50.20 Unspecified systolic (congestive) heart failure; E87.2 Acidosis; R18.8 Other ascites; I42.5 Other restrictive cardiomyopathy; K21.9 Gastro-esophageal reflux disease without esophagitis; N18.9 Chronic kidney disease, unspecified; I48.0 Paroxysmal atrial fibrillation; Z66 Do not resuscitate; G89.29 Other chronic pain; M34.9 Systemic sclerosis, unspecified; M25.60 Stiffness of unspecified joint, not elsewhere classified; I73.00 Raynaud's syndrome without gangrene; K80.80 Other cholelithiasis without obstruction; D69.6 Thrombocytopenia, unspecified; I27.2 Other secondary pulmonary hypertension; I08.1 Rheumatic disorders of both mitral and tricuspid valves; D46.9 Myelodysplastic syndrome, unspecified

== ENCOUNTER 2017-04-14 12:44 | Inpatient (IN) | payer OTHER ==
[~2017-04-14] VITALS: Ht 165.1 cm; Wt 65.5 kg
--- NOTE | 2017-04-14 13:15 | NUR ---
PT READMITTED FOR [facility],CONTNIUES ON BIPAP, NEW ORDERS RECIEVED, WILL CONTIUE TO MONITOR
[2017-04-14 13:54] VITALS: BP 162/94; Ht 165.1 cm; Wt 65.5 kg
--- NOTE | 2017-04-14 14:10 | NUR ---
CORE MEASURES ABSTRACTOR INITIATED, WEANED BIPAP ON OXYMIZER 4L HR 22, SPO2 98 WILL CONTINUE TO MONITOR
[2017-04-14 15:00] VITALS: BP 156/87
--- NOTE | 2017-04-14 17:00 | NUR ---
PT CONTINUES ON HOSPICE, CONTIUES ON O2 AND MORPHINE ASSOCIATE PROFESSOR OF BIOLOGY CONTINOUS, NO PAIN OR NEEDS NOTED WILL CONTINUE TO MONITOR
--- NOTE | 2017-04-14 18:23 | NUR ---
PT SPO2 DROPPING INTO 70-80S, O2 INCREASED, HR STABLE AT 118, RESPIRATIONS 5, IN ROOM WITH PT WILL CONTINUE TO MONITOR
[2017-04-14 19:30] VITALS: BP 115/22
--- NOTE | 2017-04-14 19:30 | NUR ---
REPORT RECEIVED AND CARE ASSUMED. INITIAL SHIFT ASSESSMENT COMPLETED SEE FLOWSHEET. PT REMAINS IN ICU AND IS ADMITTED TO HOSPICE. HOSPICE CARE PROVIDED. PT IS TOTAL CARE FOR ADLS AND IS VIRTUALLY NONRESPONSIVE. DID HAVE A REFLEXIVE CLAMPING OF JAW WHEN ORAL CARE PROVIDED. EYES ARE WIDE OPEN AND NONREACTIVE. PT RECEIVING MS AT 2MG/HR BASAL RATE WITH BOLUSES ORDERED Q2H PRN. IV LINE AND FLUIDS ARE APPROPRIATELY LABELED AND ARE CURRENT.
--- NOTE | 2017-04-14 21:00 | NUR ---
FAMILY AT BEDSIDE FOR VISITING. UPDATE GIVEN. NO SIGNIFICANT CHANGES NOTED
[2017-04-14 23:00] VITALS: BP 60/20
--- NOTE | 2017-04-14 23:00 | NUR ---
CALL PLACED TO SISTER, MEMO, NEXT OF KIN TO NOTIFY OF CHANGE IN B/P. SHE AND HER BROTHER CAME BACK TO SIT WITH PT. NO OTHER CHANGES
--- NOTE | 2017-04-15 00:47 | NUR ---
UNABLE TO OBTAIN B/P. FAMILY IN WAITING ROOM, NOTIFIED AND RETURNED TO BEDSIDE.
--- NOTE | 2017-04-15 02:00 | NUR ---
NO SIGNIFICANT CHANGE NOTED IN PT. CONTINUE TO MONITOR AND PROVIDE COMFORT CARE
[2017-04-15 03:00] VITALS: BP 52/00
--- NOTE | 2017-04-15 03:00 | NUR ---
B/P READING NOT GIVING DIASTYOLIC READING. RESPIRATIONS ARE GUPPY LIKE AND INFREQUENT. CARDIAC RHYTHM IS FLUTTER. 60-70'S. SISTER REMAINS AT BEDSIDE. PT CONTINUES TO BE TOTAL CARE
--- NOTE | 2017-04-15 06:30 | NUR ---
HR 30-40'S. SISTER REMAINS AT BEDSIDE. PT DOES NOT. EXHIBIT SIGNS OF PAIN.
--- NOTE | 2017-04-15 06:47 | NUR ---
PT NO LONGER HAS A PULSE AND ACADEMIC COACH SHOWS ASYTOLE. PT NO LONGER HAS RESPIRATIONS. SISTER ASKED FOR SOME PRIVATE TIME WITH PT AND BROTHER
--- NOTE | 2017-04-15 06:55 | NUR ---
PAGED DR. FOLEY TO NOTIFY OF PT CONDITION. MESSAGE LEFT FOR HIM TO RETURN CALL
--- NOTE | 2017-04-15 07:00 | NUR ---
REC'D REPORT AND RESUMED CARE, PATIENT , TOD 0647, PC TO DR FOLEY, POST MORTOM CARE COMPLETED, [address] FOLEY HE WILL COME TO PRONOUNCE, [address] FOLEY, 0845 SPOKE WITH GENERAL LOT ATTENDANT ROSALES KELLY, 0850 [facility] NOTIFIED OF 0853 IVETT BUSTOS [facility]AK NOTIFIED, PATIENT R/O RE: SEPSIS, 0859 [facility] NOTIFIED, 1100 REMAINS PICKED UP BY HOME, CERTIFICATE SIGN, FAXED TO [employer], AND ORIGNAL PLACED IN CHART
--- NOTE | 2017-04-15 07:58 | NUR ---
PT WAS PLACED ON HOSPICE 04/14/17 PER FAMILY REQUEST. ORDERS WERE RECEIVED FROM DR FOLEY AND ENTERED. DNR ORDER WAS NOT ENTERED AT THE TIME THE REST OF THE ORDERS WERE ENTERED. ORDERED ENTER INTO SYSTEM NOW
== END 2017-04-15 11:00 | DRG 951 ==
LOC: D.SDCHOLD 12:44 → D.ICU 12:44
PROVIDERS: ADMIT Legal Medicine
DX: Z51.5 Encounter for palliative care (principal)